=== PATIENT | female | born 1955 | race Caucasian/White ===

== ENCOUNTER 2017-10-12 15:26 | Observation (INO) | payer MEDICARE, MEDICAID ==
[~2017-10-12] VITALS: Ht 157.5 cm; Wt 92.5 kg
--- OUTSIDE RECORDS SUMMARY | 2017-10-12 15:30 | XMS REPORT ---
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
--- OUTSIDE RECORDS SUMMARY | 2017-10-12 15:30 | XMS REPORT ---
Author Author JESSICA LUA [facility] Address [address] [place] [address] Care Team Providers Care Qi Specialist Name Role Phone JESSICA LUA Unavailable PROBLEMS Unknown Problems ALLERGIES Unknown Allergies SOCIAL HISTORY No smoking Hx information available PLAN OF CARE VITAL SIGNS MEDICATIONS Unknown Medications RESULTS No Results PROCEDURES No Known procedures IMMUNIZATIONS No Known Immunizations
--- OUTSIDE RECORDS SUMMARY | 2017-10-12 15:30 | XMS REPORT ---
Author Author TANMAY CADE [facility] Address [address] [place] [address] Care Team Providers Care Reimbursement Representative Name Role Phone TANMAY CADE Unavailable PROBLEMS Unknown Problems ALLERGIES Unknown Allergies SOCIAL HISTORY No smoking Hx information available PLAN OF CARE VITAL SIGNS MEDICATIONS Medication Instructions Dosage Frequency Start Date End Date Duration Status Venlafaxine HCl ER 150 MG Orally Once a day 1 capsule with food 24h Apr 18 days Active RESULTS No Results PROCEDURES No Known procedures IMMUNIZATIONS No Known Immunizations
--- OUTSIDE RECORDS SUMMARY | 2017-10-12 15:31 | XMS REPORT ---
Author Author TANMAY CADE Organization [facility] Address [address] [place] [address] Care Team Providers Care Pigment Making Supervisor Name Role Phone ALYSSIA TANMAY Unavailable PROBLEMS Unknown Problems ALLERGIES Unknown Allergies SOCIAL HISTORY No smoking Hx information available PLAN OF CARE VITAL SIGNS MEDICATIONS Medication Instructions Dosage Frequency Start Date End Date Duration Status Trokendi XR 50 mg Orally Once a day 1 capsule 24h Apr, 30 days Active Montelukast Sodium 10 mg Orally Once a day 1 tablet in the evening 24h Apr, 30 days Active Spironolactone 50 MG Orally Once a day 1 tablet 24h Apr, 30 day (s) Active Lisinopril-Hydrochlorothiazide 20-25 MG Orally Once a day 1 tablet 24h Apr, 21 days Active Venlafaxine HCl ER 150 MG Orally Once a day 1 capsule with food 24h Apr 18 days Active BusPIRone HCl 10 mg Orally Twice a day 1 tablet 12h Apr, 21 days Active Rosuvastatin Calcium 20 mg Orally Once a day 1 tablet 24h Apr, 21 days Active Sulfasalazine 500 MG Orally every 6 hrs 1 tablet 6h Apr, 21 days Active RESULTS No Results PROCEDURES No Known procedures IMMUNIZATIONS No Known Immunizations
[2017-10-12 16:16] LABS: BASOPHILS # (AUTO) 0.1 10^3/uL (0.0-0.1); BASOPHILS % (AUTO) 0 % (0-10); EOSINOPHILS # (AUTO) 0.3 10^3/uL (0.0-0.3); EOSINOPHILS % (AUTO) 1 % (0-10); HEMATOCRIT 31 % (35-52); HEMOGLOBIN 10.2 G/DL (11.5-16.0); LYMPHOCYTES # (AUTO) 2.7 X 10^3 (1.0-4.0); LYMPHOCYTES % (AUTO) 11 % (12-44); MEAN CORPUSCULAR HEMOGLOBIN 30 PG (25-34); MEAN CORPUSCULAR HGB CONC 33 G/DL (32-36); MEAN CORPUSCULAR VOLUME 91 FL (80-99); MEAN PLATELET VOLUME 9.6 FL (7.4-10.4); MONOCYTES # (AUTO) 2.4 X 10^3 (0.0-1.0); MONOCYTES % (AUTO) 9 % (0-12); NEUTROPHILS # (AUTO) 19.9 X 10^3 (1.8-7.8); NEUTROPHILS % (AUTO) 79 % (42-75); PLATELET COUNT 285 10^3/uL (130-400); RED BLOOD COUNT 3.35 10^6/uL (4.35-5.85); RED CELL DISTRIBUTION WIDTH 17.1 % (10.0-14.5); WHITE BLOOD COUNT 25.3 10^3/uL (4.3-11.0)
--- NOTE | 2017-10-12 16:22 | ED General ---
General Chief Complaint: General Problems/Pain Stated Complaint: HAND AND FEET PAIN;DEHYDRATION Nursing Triage Note: PATIENT STATES THAT SHE "JUST HASN'T FELT GOOD." STATES SHE HAS HAD A "BUG" SINCE MAY AND THE VOMITS EVERY TIME SHE COUGHS. SHE SAID SHE IS HERE BECAUSE OF HER NEUROPATHY BUT STATES SHE HAS HAD IT FOR YEARS AND IT IS NOT NECESSARILY WORSE TODAY. SHE ALSO THINKS SHE IS DEHYDRATED AND SHE TWITCHES A LOT. DAUGHTER HAS VIDEO OF A TWITCHING EPISODE ON HER PHONE. Nursing Sepsis Screen: No Definite Risk (ROSA MARIA GENAO STUDENT) History of Present Illness Date Seen by Provider: Oct 12, 2017 Time Seen by Provider: 15:50 Initial Comments This is a 62 y/o female presenting to the ED by private vehicle. Patients chief complaints are light headedness, dizziness, and twitching that started yesterday. Patient is appears to have dystonic movement in the head, neck and shoulders. Patient reports falling today after standing up, denies hitting her head or any other injuries, pain or syncope. Patient also reports a chronic productive cough and nasal congestion that has been present since May. She reports vomiting mucus occasionally with a forceful cough. Patient has a history of neuropathy in her hands and feet, she is not able to feel her feet when standing. The numbness and tingling has not changed in severity recently. Patient was able to stand on her own when asked, she uses a walker at home to ambulate. She reports a history of urinary incontinence, but denies pain or burning on urination. She also states that she has rheumatoid arthritis, she states she was recently taken off Methotrexate on 10/07/17 due to muscle cramping. Patient reports that she quit smoking 5 years ago, and denies recent drug or alcohol use. Currently prescribed Tramadol for pain, she states that she has been prescribed multiple opioids in the past. Patient is currently living in [place], [place] and is here visiting her daughter. (ROSA MARIA GENAO STUDENT) Allergies and Home Medications Allergies Coded Allergies: Penicillins (Verified Allergy, Unknown, 10/12/17) Patient Home Medication List Home Medication List Reviewed: Yes (ROSA MARIA GENAO) Review of Systems Constitutional: No chills, No diaphoresis; dizziness; No fever; other ( lightheaded) EENTM: nose congestion Respiratory: cough (productive), dyspnea on exertion; No short of breath Cardiovascular: No chest pain, No edema, No syncope Gastrointestinal: no symptoms reported; No abdominal pain, No constipation, No diarrhea; vomiting (after coughing ) Genitourinary: No decreased output, No dysuria, No frequency; incontinence Musculoskeletal: back pain (chronic ), muscle cramps, muscle twitching Skin: dryness Psychiatric/Neurological: Depressed, Numbness (feet), Tingling (hands and feet ), Other (twitching ) Hematologic/Lymphatic: No Symptoms Reported Immunological/Allergic: no symptoms reported (ROSA MARIA GENAO [employer] Live STUDENT) Past Edbamcv-Bynpgk-Htctzj Hx Patient Social History Alcohol Use: Denies Use Recreational Drug Use: No Smoking Status: Former Smoker (quit 5 years ago ) Recent Foreign Travel: No Contact w/Someone Who Travel: No Recent Infectious Disease Expo: No Physical Abuse: No Sexual Abuse: No (ROSA MARIA GENAO ABC Live SERA) Past Medical History Respiratory: Yes COPD Neurological: Yes Neuropathy Musculoskeletal: Yes Degenerate Disk Disease Endocrine: Yes (DM) Nursing Suicide Risk Score: 0 (ROSA MARIA GENAO ABC Live SERA) Physical Exam Vital Signs Vital Signs - First Documented 10/12/17 15:30 Temp 98.0 Pulse 96 Resp 22 B/P (MAP) 120/79 (93) Pulse Ox 96 (LULA LENTZ MD) Vital Signs Capillary Refill : Less Than 3 Seconds (ROSA MARIA GENAO [employer] Live STUDENT) General Appearance: No Apparent Distress, Other (dystonic movemtents of the head/neck, shoulders, extremities ) Eyes: Bilateral Eye Normal Inspection, Bilateral Eye EOMI Neck: Full Range of Motion, Normal Inspection, Non Tender, Supple Respiratory: Chest Non Tender, Lungs Clear, Normal Breath Sounds, No Accessory Muscle Use, No Respiratory Distress Cardiovascular: Regular Rate, Rhythm, No Edema, No Gallop, No JVD, No Murmur, Normal Peripheral Pulses Gastrointestinal: Normal Bowel Sounds, No Organomegaly, No Pulsatile Mass, Non Tender, Soft Extremity: Normal Capillary Refill, Normal Inspection, Normal Range of Motion, Non Tender, No Pedal Edema Neurologic/Psychiatric: Alert, Oriented x3, No Motor/Sensory Deficits, roving hauler II- XII Norm as Tested, Other (decreased sensation of Bilateral feet ) Skin: Normal Color, Warm/Dry (ROSA MARIA GENAO ABC Live STUDENT) Progress/Results/Core Measures Suspected Sepsis Recent Fever Within 48 Hours: No Infection Criteria Present: None New/Unexplained Altered Menta: No Sepsis Screen: No Definite Risk SIRS Temperature:98.0 Pulse: 96 Respiratory Rate: 22 Laboratory Tests 10/12/17 15:40: White Blood Count 25.3H Blood Pressure 120 /79 Mean: 93 Laboratory Tests 10/12/17 15:40: Creatinine 1.24, Platelet Count 285, Total Bilirubin 0.4 (ROSA MARIA GENAO ABC Live STUDENT) Results/Orders Lab Results Laboratory Tests Test 10/12/17 15:40 10/12/17 16:20 Range/Units White Blood Count 25.3 H 4.3-11.0 10^3/uL Red Blood Count 3.35 L 4.35-5.85 10^6/uL Hemoglobin 10.2 L 11.5-16.0 G/DL Hematocrit 31 L 35-52 % Mean Corpuscular Volume 91 80-99 FL Mean Corpuscular Hemoglobin 30 25-34 PG Mean Corpuscular Hemoglobin Concent 33 32-36 G/DL Red Cell Distribution Width 17.1 H 10.0-14.5 % Platelet Count 285 130-400 10^3/uL Mean Platelet Volume 9.6 7.4-10.4 FL Neutrophils (%) (Auto) 79 H 42-75 % Lymphocytes (%) (Auto) 11 L 12-44 % Monocytes (%) (Auto) 9 0-12 % Eosinophils (%) (Auto) 1 0-10 % Basophils (%) (Auto) 0 0-10 % Neutrophils # (Auto) 19.9 H 1.8-7.8 X 10^3 Lymphocytes # (Auto) 2.7 1.0-4.0 X 10^3 Monocytes # (Auto) 2.4 H 0.0-1.0 X 10^3 Eosinophils # (Auto) 0.3 0.0-0.3 10^3/uL Basophils # (Auto) 0.1 0.0-0.1 10^3/uL Neutrophils % (Manual) 83 % Lymphocytes % (Manual) 9 % Monocytes % (Manual) 7 % Eosinophils % (Manual) 0 % Basophils % (Manual) 0 % Band Neutrophils 1 % Blood Morphology Comment NORMAL Sodium Level 132 L 135-145 MMOL/L Potassium Level 4.6 3.6-5.0 MMOL/L Chloride Level 101 98-107 MMOL/L Carbon Dioxide Level 23 21-32 MMOL/L Anion Gap 8 5-14 MMOL/L Blood Urea Nitrogen 30 H 7-18 MG/DL Creatinine 1.24 0.60-1.30 MG/DL Estimat Glomerular Filtration Rate 44 BUN/Creatinine Ratio 24 Glucose Level 126 H 70-105 MG/DL Calcium Level 9.7 8.5-10.1 MG/DL Magnesium Level 1.2 L 1.8-2.4 MG/DL Total Bilirubin 0.4 0.1-1.0 MG/DL Aspartate Amino Transf (AST/SGOT) 40 H 5-34 U/L Alanine Aminotransferase (ALT/SGPT) 27 0-55 U/L Alkaline Phosphatase 64 40-136 U/L Troponin I < 0.30 <0.30 NG/ML C-Reactive Protein High Sensitivity 1.57 H 0.00-0.50 MG/DL Total Protein 7.2 6.4-8.2 GM/DL Albumin 3.8 3.2-4.5 GM/DL TSH Loving Testing 1.40 0.35-4.94 UIU/ML Serum Alcohol < 10 <10 MG/DL Urine Color YELLOW Urine Clarity CLEAR Urine pH 6 5-9 Urine Specific [place] 1.020 1.016-1.022 Urine Protein 1+ H NEGATIVE Urine Glucose (UA) NEGATIVE NEGATIVE Urine Ketones NEGATIVE NEGATIVE Urine Nitrite NEGATIVE NEGATIVE Urine Bilirubin NEGATIVE NEGATIVE Urine Urobilinogen NORMAL NORMAL MG/DL Urine Leukocyte Esterase 1+ H NEGATIVE Urine RBC (Auto) 2+ H NEGATIVE Urine RBC 2-5 H /HPF Urine WBC 2-5 /HPF Urine Squamous Epithelial Cells 0-2 /HPF Urine Crystals NONE /LPF Urine Bacteria NONE /HPF Urine Casts NONE /LPF Urine Mucus TRACE /LPF Urine Culture Indicated NO Urine Opiates Screen NEGATIVE NEGATIVE Urine Oxycodone Screen NEGATIVE NEGATIVE Urine Methadone Screen NEGATIVE NEGATIVE Urine Propoxyphene Screen NEGATIVE NEGATIVE Urine Barbiturates Screen NEGATIVE NEGATIVE Ur Tricyclic Antidepressants Screen NEGATIVE NEGATIVE Urine Phencyclidine Screen NEGATIVE NEGATIVE Urine Amphetamines Screen NEGATIVE NEGATIVE Urine Methamphetamines Screen NEGATIVE NEGATIVE Urine Benzodiazepines Screen NEGATIVE NEGATIVE Urine Cocaine Screen NEGATIVE NEGATIVE Urine Cannabinoids Screen NEGATIVE NEGATIVE (LULA LENTZ MD) My Orders Orders - LULA LENTZ MD Alcohol (10/12/17 16:07) Cbc With Automated Diff (10/12/17 16:07) Comprehensive Metabolic Panel (10/12/17 16:07) Drug Screen Stat (Urine) (10/12/17 16:07) Magnesium (10/12/17 16:07) Thyroid Analyzer (10/12/17 16:07) Troponin I (10/12/17 16:07) Ua Culture If Indicated (10/12/17 16:07) Chest 1 View, Ap/Pa Only (10/12/17 16:07) Saline Lock/Iv-Start (10/12/17 16:07) Ekg Tracing (10/12/17 16:07) Monitor-Rhythm Ecg Trace Only (10/12/17 16:07) Orthostatic Vital Signs (Adult (10/12/17 16:07) Us Carotid Don Complete [id number] (10/12/17 16:12) Manual Differential (10/12/17 15:40) Saline Lock/Iv-Start (10/12/17 16:46) Ns Iv 1000 Ml (Sodium Chloride 0.9%) (10/12/17 16:46) Hs C Reactive Protein (10/12/17 16:46) Magnesium 1 Gm/100 Ml Ivpb (Magnesium Rodriguez (10/12/17 17:00) Ct Head Wo (10/12/17 17:09) General/Regular (10/13/17 Breakfast) Ketorolac Injection (Toradol Injection) (10/12/17 18:15) (LULA LENTZ MD) Medications Given in ED Current Medications Medications Dose Ordered Sig/Neto Route Start Time Stop Time Status Last Admin Dose Admin Magnesium Sulfate/ Dextrose 100 ml @ 100 mls/hr ONCE ONCE IV 10/12/17 17:00 10/12/17 17:59 DC 10/12/17 17:06 100 MLS/HR Sodium Chloride 1,000 ml @ 0 mls/hr Q0M ONCE IV 10/12/17 16:46 10/12/17 16:47 DC 10/12/17 17:00 0 MLS/HR (LULA LENTZ MD) Vital Signs/I&O 10/12/17 10/12/17 15:30 16:23 Temp 98.0 Pulse 96 93 101 99 Resp 22 B/P (MAP) 120/79 (93) 113/53 (73) 109/67 (81) 94/38 (56) Pulse Ox 96 (LULA LENTZ MD) Vital Signs/I&O Capillary Refill : Less Than 3 Seconds (ROSA MARIA GENAO MED STUDENT) Blood Pressure Mean: 93 Progress Note #1: Time: 16:07 Progress Note Chest X ray was reviewed and read by me, see report below: NAME: KRISTYN ROSS [facility] REC#: [id number] PT STATUS: REG ER : 1955 PHYSICIAN: LULA LENTZ MD ADMIT DATE: 10/12/17/ER Draft Date of Exam:10/12/17 CHEST 1 VIEW, AP/PA ONLY INDICATION: Cough. COMPARISON: None. FINDINGS: Single view of the chest demonstrates clear lungs bilaterally. The heart is normal. There is no pneumothorax. Osseous structures are normal. IMPRESSION: Negative chest. Dictated on workstation # [id number] Dict: 10/12/17 1718 Trans: 10/12/17 1720 [id number] Interpreted by: KEIRA ACEVES Electronically signed by: Progress Note #2: Time: 16:40 Progress Note Carotid US was reviewed and read by me, see report below: NAME: KRISTYN ROSS [facility] REC#: [id number] PT STATUS: REG ER : 1955 PHYSICIAN: LULA LENTZ MD ADMIT DATE: 10/12/17/ER Draft Date of Exam:10/12/17 US CAROTID DON COMPLETE [id number] PROCEDURE: US carotid duplex, bilateral. TECHNIQUE: Multiple real-time grayscale images were obtained over the carotid arteries in various projections, bilaterally. Additional duplex Doppler and color Doppler images were also obtained. INDICATION: Atherosclerotic disease. Altered mental status. FINDINGS: Real-time imaging shows mild calcified plaquing in the carotid bulbs and internal carotid arteries bilaterally. Color Doppler imaging shows normal antegrade flow throughout both carotid and vertebral arteries. Doppler sampling shows normal waveforms throughout with no hemodynamic change. IMPRESSION: Mild atherosclerotic changes within the internal carotid arteries bilaterally estimated less than 30%. There are no hemodynamic changes present. Parameters based on the consensus panel [place]-Scale and Doppler ultrasound criteria published March 2003, Radiology, Volume 229. DOPPLER (peak systolic velocity M/S Right Left CCA 1.1 1.0 ICA Proximal .90 .80 ICA Mid .91 .80 ICA Distal 1.1 1.0 RATIO .80 .75 ECA 1.2 1.0 VERT .62 .50 Dictated on workstation # [id number] Dict: 10/12/174 Trans: 10/12/17 1718 [id number] Interpreted by: MYRON CROSS MD Electronically signed by: Progress Note #3: Time: 16:45 Progress Note Patient is complaining of muscle cramps and pain, this could be due to a low Magnesium level. Patient reports she has had low magnesium in the past, will begin IV Mg replacement and monitor for improvement. Patient was slightly orthostatic with blood pressures were: 113/53 lying, 109/67 sitting, 94/38 standing, continue IV fluids. Work up revealing leukocytosis without an obvious sign of infection, CXR, carotid US and urinalysis were unremarkable. Due to the patient's new onset of dystonic movements, leukocytosis, and recent use of Methotrexate I believe it is necessary to perform a head CT. The risks and benefits of a CT scan were discussed with the patient. Progress Note #4: Time: 17:[address] was read and reviewed by me, see report below NAME: KRISTYN ROSS [facility] REC#: [id number] PT STATUS: REG ER : 1955 PHYSICIAN: LULA LENTZ MD ADMIT DATE: 10/12/17/ER Draft Date of Exam:10/12/17 CT HEAD WO PROCEDURE: CT head without contrast. TECHNIQUE: Multiple contiguous axial images were obtained through the brain without the use of intravenous contrast. INDICATION: Headache, dehydration, twitching sensation. FINDINGS: The ventricles are normal in size, shape and position. There is no midline shift or mass effect. There is no hemorrhage or evidence of acute ischemia. There is no cerebral edema. No extra-axial fluid collection is seen. The bony calvarium and visualized paranasal sinuses and mastoids are clear. IMPRESSION: Negative CT head. Dictated on workstation # [id number] Dict: 10/12/17 1739 Trans: 10/12/17 1745 [facility] [id number] Interpreted by: KEIRA ACEVES Electronically signed by: Progress Note #5: Time: 17:59 Progress Note Plan to admit patient for observation, due to unexplained dystonic movements, IV fluid replacement,severe muscle cramping and magnesium replacement. (ROSA MARIA GENAO MED STUDENT) Progress Note : Time: 18:34 Progress Note Patient was seen, interviewed, and examined along with Rosa Maria's MARY BETH Gen[employer] student. I agree with her history, exam, and assessments with the following additions. Patient is accompanied by her daughter who reports her dystonic movements are not baseline. She presents a video on her phone of patient having more marketed dystonic movements at the house. Patient complains primarily of a near syncopal episode with lightheadedness today as well as some intense cramping. The cramping had already started last Tuesday when she saw her doctor. He asked her to discontinue methotrexate at that time. Patient's exam was relatively unremarkable with the exception of instability with gait, generalized weakness, and dystonic movements. A thorough workup was performed. Imaging that included chest x-ray, carotid ultrasound, and CT of the head was all negative. Labs revealed leukocytosis of unexplained etiology. Patient denies any known areas of infection. Patient has not been on any steroids in the recent past. Patient also had a notably low magnesium. She was found to be mildly orthostatic. A liter of IV normal saline was administered. 1 g of magnesium was also administered in the ER. Patient noted improvement even before the full liter of normal saline was completed. Patient sees a physician in [facility] but is at our facility because she is here with her daughter. Exam: Gen.: Alert, oriented, generally weak HEENT: normocephalic and atraumatic, oropharynx somewhat dry Neck: Normal to inspection Heart: Regular rate and rhythm without murmur, no significant edema Lungs: Clear to auscultation bilaterally Abdomen: Soft, nontender, normal bowel sounds Neuro/psych: Alert and oriented, generalized weakness with no focal deficits, generalized dystonic movements primarily affecting the torso and upper extremities Skin: Warm, dry, no rashes Case was reviewed with Dr. Mehta who agrees with admission. We will hold her home medications at this time as medication effect may be part of her symptoms especially in the context of hypovolemia. We will continue to hydrate with normal saline overnight. Dr. Syed request a consultation with Dr. Smith who agrees to see the patient. Labs will be repeated in the morning. (LULA LENTZ MD) Departure Communication (Admissions) Time/Spoke to Admitting Phy: 18:[address] Syed. Time/Spoke to Consulting Phy: 18:[address] Smith. (ROSA MARIA EGNAO MED STUDENT) Impression Primary Impression: Hypomagnesemia Additional Impressions: Dystonic movements Muscle cramping Leukocytosis, unspecified Hypovolemia Generalized weakness Disposition: ADMITTED INPATIENT Condition: Stable Admissions Decision to Admit Reason: Admit from ER (General) Decision to Admit/Date: Oct 12, 2017 Time/Decision to Admit Time: 17:50 (ROSA MARIA GENAO STUDENT) Decision to Admit Reason: Admit from ER (General) (LULA LENTZ MD) Departure-Patient Inst. Referrals: NISREEN LOU MD (PCP/Family) Primary Care Physician ROSA MARIA GENAO STUDENT Oct 12, 2017 16:22 LULA LENTZ MD Oct 12, 2017 18:40
[2017-10-12 16:23] VITALS: BP_SYST 109; BP_SYST 113; BP_SYST 94; BP_DIAS 38; BP_DIAS 53; BP_DIAS 67
[2017-10-12 16:27] LABS: BAND NEUTROPHILS 1 %; BASOPHILS % (MANUAL) 0 %; EOSINOPHILS % (MANUAL) 0 %; LYMPHOCYTES % (MANUAL) 9 %; MONOCYTES % (MANUAL) 7 %; NEUTROPHILS % (MANUAL) 83 %; RBC MORPH NORMAL
[2017-10-12 16:29] LABS: ALANINE AMINOTRANSFERASE 27 U/L (0-55); ALBUMIN 3.8 GM/DL (3.2-4.5); ALKALINE PHOSPHATASE 64 U/L (40-136); BILIRUBIN,TOTAL 0.4 MG/DL (0.1-1.0); BUN/CREATININE RATIO 24; CALCIUM 9.7 MG/DL (8.5-10.1); CARBON DIOXIDE 23 MMOL/L (21-32); CHLORIDE 101 MMOL/L (98-107); CREATININE SERUM 1.24 MG/DL (0.60-1.30); GFR ESTIMATED 44; GLUCOSE 126 MG/DL (70-105); MAGNESIUM 1.2 MG/DL (1.8-2.4); POTASSIUM 4.6 MMOL/L (3.6-5.0); SODIUM 132 MMOL/L (135-145); TOTAL PROTEIN 7.2 GM/DL (6.4-8.2)
[2017-10-12 16:32] LABS: BILIRUBIN,URINE NEGATIVE (NEGATIVE); CLARITY,URINE CLEAR; COLOR,URINE YELLOW; GLUCOSE, URINE (UA) NEGATIVE (NEGATIVE); KETONES,URINE NEGATIVE (NEGATIVE); LEUKOCYTE ESTERASE ,URINE 1+ (NEGATIVE); NITRITE,URINE NEGATIVE (NEGATIVE); PH,URINE 6 (5-9); PROTEIN,URINE 1+ (NEGATIVE); UROBILINOGEN,URINE NORMAL (NORMAL)
[2017-10-12 16:39] LABS: SQUAMOUS EPITHELIAL CELL,UR 0-2 /HPF
[2017-10-12 16:41] LABS: AMPHETAMINE SCREEN, URINE NEGATIVE (NEGATIVE); BARBITURATE SCREEN URINE NEGATIVE (NEGATIVE); BENZODIAZEPINES SCREEN URINE NEGATIVE (NEGATIVE); CANNABINOID SCREEN, URINE NEGATIVE (NEGATIVE); COCAINE SCREEN URINE NEGATIVE (NEGATIVE); METHAMPHETAMINE SCREEN URINE S NEGATIVE (NEGATIVE); OPIATE SCREEN URINE NEGATIVE (NEGATIVE)
[2017-10-12 16:42] LABS: METHADONE STAT NEGATIVE (NEGATIVE); OXYCODONE STAT NEGATIVE (NEGATIVE); PROPOXYPHENE STAT NEGATIVE (NEGATIVE); TRICYCLIC ANTIDEPRESSANTS SCRE NEGATIVE (NEGATIVE)
[2017-10-12] MEDS ORDERED: NS IV 1000 ML 1,000 ML IV ONE (16:46)
[2017-10-12] MEDS ORDERED: MAGNESIUM 1 GM/100 ML IVPB 100 ML IV ONE (17:00)
--- NOTE | 2017-10-12 17:18 | Diagnostic Imaging Report ---
PROCEDURE: US carotid duplex, bilateral. TECHNIQUE: Multiple real-time grayscale images were obtained over the carotid arteries in various projections, bilaterally. Additional duplex Doppler and color Doppler images were also obtained. INDICATION: Atherosclerotic disease. Altered mental status. FINDINGS: Real-time imaging shows mild calcified plaquing in the carotid bulbs and internal carotid arteries bilaterally. Color Doppler imaging shows normal antegrade flow throughout both carotid and vertebral arteries. Doppler sampling shows normal waveforms throughout with no hemodynamic change. IMPRESSION: Mild atherosclerotic changes within the internal carotid arteries bilaterally estimated less than 30%. There are no hemodynamic changes present. Parameters based on the consensus panel [place]-Scale and Doppler ultrasound criteria published March 2003, Radiology, Volume 229. DOPPLER (peak systolic velocity M/S Right Left CCA 1.1 1.0 ICA Proximal .90 .80 ICA Mid .91 .80 ICA Distal 1.1 1.0 RATIO .80 .75 ECA 1.2 1.0 VERT .62 .50 Dictated by: Dictated on workstation # [id number]
--- NOTE | 2017-10-12 17:20 | Diagnostic Imaging Report ---
INDICATION: Cough. COMPARISON: None. FINDINGS: Single view of the chest demonstrates clear lungs bilaterally. The heart is normal. There is no pneumothorax. Osseous structures are normal. IMPRESSION: Negative chest. Dictated by: Dictated on workstation # [id number]
--- NOTE | 2017-10-12 17:45 | Diagnostic Imaging Report ---
PROCEDURE: CT head without contrast. TECHNIQUE: Multiple contiguous axial images were obtained through the brain without the use of intravenous contrast. INDICATION: Headache, dehydration, twitching sensation. FINDINGS: The ventricles are normal in size, shape and position. There is no midline shift or mass effect. There is no hemorrhage or evidence of acute ischemia. There is no cerebral edema. No extra-axial fluid collection is seen. The bony calvarium and visualized paranasal sinuses and mastoids are clear. IMPRESSION: Negative CT head. Dictated by: Dictated on workstation # [id number]
[2017-10-12] MEDS ORDERED: KETOROLAC 30 MG/ML VIAL IVP ONE (18:15)
[2017-10-12 18:55] VITALS: BP 135/66
[2017-10-12] MEDS ORDERED: IBUPROFEN TABLET 200 MG TAB PO PRN (19:15)
[2017-10-12] MEDS ORDERED: CATHETER FLUSH 10 ML SYR IV PRN (19:15)
[2017-10-12] MEDS ORDERED: ACETAMINOPHEN 500 MG TAB (TYLENOL) PO PRN (19:15)
[2017-10-12 19:55] VITALS: BP 132/60
[2017-10-12] MEDS ORDERED: ONDANSETRON 4 MG/2 ML (SDV) Z0FRAN IVP PRN (20:30)
[2017-10-12] MEDS ORDERED: ALPRAZolam 0.25 MG (XANAX) TAB PO PRN (20:30)
[2017-10-12] MEDS: NS IV 1000 ML 1,000 ML IV SCH (20:30)
[2017-10-12] MEDS ORDERED: fentaNYL INJECTION 100 MCG/2 ML AMP IVP PRN (20:30)
[2017-10-12] MEDS: MAGNESIUM 1 GM/D5W 100 ML IVPB IV SCH ×2 (20:31→21:53)
[2017-10-12 20:55] VITALS: BP 112/52
[2017-10-12 21:55] VITALS: BP 132/59
[2017-10-13] VITALS: BP 118/63
[2017-10-13 04:00] VITALS: BP 116/73
[2017-10-13 05:57] LABS: BASOPHILS # (AUTO) 0.1 10^3/uL (0.0-0.1); BASOPHILS % (AUTO) 0 % (0-10); EOSINOPHILS # (AUTO) 0.5 10^3/uL (0.0-0.3); EOSINOPHILS % (AUTO) 4 % (0-10); HEMATOCRIT 29 % (35-52); HEMOGLOBIN 9.5 G/DL (11.5-16.0); LYMPHOCYTES # (AUTO) 2.6 X 10^3 (1.0-4.0); LYMPHOCYTES % (AUTO) 22 % (12-44); MEAN CORPUSCULAR HEMOGLOBIN 31 PG (25-34); MEAN CORPUSCULAR HGB CONC 33 G/DL (32-36); MEAN CORPUSCULAR VOLUME 93 FL (80-99); MEAN PLATELET VOLUME 9.3 FL (7.4-10.4); MONOCYTES # (AUTO) 1.5 X 10^3 (0.0-1.0); MONOCYTES % (AUTO) 13 % (0-12); NEUTROPHILS # (AUTO) 7.4 X 10^3 (1.8-7.8); NEUTROPHILS % (AUTO) 61 % (42-75); PLATELET COUNT 259 10^3/uL (130-400); RED BLOOD COUNT 3.11 10^6/uL (4.35-5.85); RED CELL DISTRIBUTION WIDTH 17.5 % (10.0-14.5); WHITE BLOOD COUNT 12.2 10^3/uL (4.3-11.0)
[2017-10-13] MEDS: NS IV 1000 ML 1,000 ML IV SCH (06:40)
[2017-10-13 08:00] VITALS: BP 145/66
[2017-10-13] MEDS ORDERED: TRAZ150T72 PO (08:11)
[2017-10-13] MEDS ORDERED: SULF500T7 PO (08:11)
[2017-10-13] MEDS ORDERED: BACL10TA PO (08:11)
[2017-10-13] MEDS ORDERED: NYST60PO TOP (08:11)
[2017-10-13] MEDS ORDERED: TRAM50TA2 PO (08:11)
[2017-10-13] MEDS ORDERED: METH2.5T PO (08:11)
[2017-10-13] MEDS ORDERED: LEVO5TAB12 PO (08:11)
[2017-10-13] MEDS ORDERED: LISI1TAB10 PO (08:11)
[2017-10-13] MEDS ORDERED: VENL150C98 PO (08:11)
[2017-10-13] MEDS ORDERED: METF850T2 PO (08:11)
[2017-10-13] MEDS ORDERED: MONT10TA24 PO (08:11)
[2017-10-13] MEDS ORDERED: SPIR50TA2 PO (08:11)
[2017-10-13] MEDS ORDERED: BUSP10TA95 PO ×2 (08:11→08:32)
[2017-10-13] MEDS ORDERED: OMEP20CA12 PO (08:11)
[2017-10-13] MEDS ORDERED: ROSU20TA30 PO (08:11)
[2017-10-13] MEDS ORDERED: NF-MAG64T PO (08:32)
[2017-10-13] MEDS ORDERED: CHOL5000 PO (08:34)
--- NOTE | 2017-10-13 09:23 | Consultation-Cardiology ---
HPI-Cardiology Cardiology Consultation: Date of Consultation 10/13/17 Time Seen by Provider: 08:45 Date of Admission Attending Physician Stefani Syed DO Admitting Physician German Longoria MD Consulting Physician Shelley Smith MD HPI: Chief Complaint: Near syncope Ms. Medrano is a 62 year old female admitted to 410 from the ED with near syncope and AMS. She reports she was visiting her daughter yesterday when she started to have hallucinations and "was talking to people that weren't there". She reports dizziness and lightheadedness. She states she fell once d/t losing her balance. She does not report any syncope or near syncope. She states she has been having frequent nausea and vomiting since having the flu in May of this year. She reports she has been following with her PCP regarding this. She reports chronic mild to mod exertional dyspnea which is unchanged. She denies any CP or palpitations. She denies any LE edema. She reports she is currently feeling better. She has been up to BR without and difficulty. Review of Systems-Cardiology Review of Systems Constitutional: malaise Eyes: No vision change Ears/Nose/Throat: No epistaxis, No recent hearing loss Respiratory: As described under HPI Cardiovascular: As described under HPI Gastrointestinal: nausea, vomiting Skin: No rash, No ulcerations Psychiatric/Neurological: As described under HPI, depression Hematologic: No bleeding abnormalities LRT-Ijakty-Vmpqgr Hx Patient Social History Alcohol Use: Denies Use Recreational Drug Use: No Smoking Status: Former Smoker Recent Foreign Travel: No Recent Infectious Disease Expo: No Hospitalization with Isolation: Denies Physical Abuse Screen: No Sexual Abuse: No Past Medical History PMH As described under Assessment. Family Medical History Family Medical History: Father - CAD, CABG, carotid disease and AAA (first diagnosed in his 60's) Brother - CAD, CABG (late 60's) Mother - CAD Allergies and Home Medications Allergies Coded Allergies: Penicillins (Verified Allergy, Unknown, 10/12/17) Home Medications Baclofen 10 Mg Tablet, 10 MG PO TID PRN for MUSCLE SPASMS, (Reported) Buspirone HCl 10 Mg Tablet, 10 MG PO BID, (Reported) Buspirone HCl 10 Mg Tablet, 10 MG PO 1200 PRN for ANXIETY, (Reported) Cholecalciferol (Vitamin D3) 5,000 Unit Capsule, 5,000 UNIT PO DAILY, (Reported) Levocetirizine Dihydrochloride 5 Mg Tablet, 5 MG PO HS, (Reported) Magnesium Chloride 64 Mg Tab, 64 MG PO BID, (Reported) Metformin HCl 850 Mg Tablet, 850 MG PO BID, (Reported) Montelukast Sodium 10 Mg Tablet, 10 MG PO HS, (Reported) Nystatin 60 Gm Powder, TOP BID PRN for RASH, (Reported) Omeprazole 20 Mg Capsule.dr, 20 MG PO DAILY, (Reported) Rosuvastatin Calcium 20 Mg Tablet, 20 MG PO HS, (Reported) Sulfasalazine 500 Mg Tablet, 1,000 MG PO BID, (Reported) TAKES 2 (500MG) TABLETS Tramadol HCl 50 Mg Tablet, 50 MG PO Q6H PRN for PAIN-MODERATE, (Reported) Trazodone HCl 150 Mg Tablet, 150 MG PO HS, (Reported) Venlafaxine HCl 150 Mg Cap.er.24h, 150 MG PO DAILY, (Reported) Physical Exam-Cardiology Physical Exam Vital Signs/I&O Capillary Refill : Less Than 3 Seconds Constitutional: AAO x 3, well-developed, well-nourished HEENT: PERRL, hearing is well preserved, oral hygience is good; No xanthelasmas are seen Neck: No carotid bruit Respiratory: No accessory muscle use, No respiratory distress; lungs clear to auscultation, other (prolonged expiratory phase) Cardiovascular: regular rate-rhythm; No JVD; S1 and S2 Gastrointestinal: No tender; soft, round, audible bowel sounds Rectal: deferred Extremities: no lower extremity edema bilateral Neurologic/Psychiatric: grossly intact Skin: No rash, No ulcerations Data Review Labs Radiology NAME: KRISTYN MEDRANO [facility] REC#: [id number] PT STATUS: ADM Mohit : 1955 PHYSICIAN: LULA LENTZ MD ADMIT DATE: 10/12/17 Signed Date of Exam: 10/12/17 CHEST 1 VIEW, AP/PA ONLY INDICATION: Cough. COMPARISON: None. FINDINGS: Single view of the chest demonstrates clear lungs bilaterally. The heart is normal. There is no pneumothorax. Osseous structures are normal. IMPRESSION: Negative chest. Dictated by: Dictated on workstation # [id number] Dict: [id number] Trans: 10/12/171934 Interpreted by: KEIRA ACEVES Electronically signed by: KEIRA ACEVES 10/12/171934 NAME: KRISTYN MEDRANO [facility] REC#: [id number] PT STATUS: ADM Mohit : 1955 PHYSICIAN: LULA LENTZ MD ADMIT DATE: 10/12/17 Signed Date of Exam: 10/12/17 US CAROTID DON COMPLETE [id number] PROCEDURE: US carotid duplex, bilateral. TECHNIQUE: Multiple real-time grayscale images were obtained over the carotid arteries in various projections, bilaterally. Additional duplex Doppler and color Doppler images were also obtained. INDICATION: Atherosclerotic disease. Altered mental status. FINDINGS: Real-time imaging shows mild calcified plaquing in the carotid bulbs and internal carotid arteries bilaterally. Color Doppler imaging shows normal antegrade flow throughout both carotid and vertebral arteries. Doppler sampling shows normal waveforms throughout with no hemodynamic change. IMPRESSION: Mild atherosclerotic changes within the internal carotid arteries bilaterally estimated less than 30%. There are no hemodynamic changes present. Parameters based on the consensus panel [place]-[employer] and Doppler ultrasound criteria published March 2003, Radiology, Volume 229. DOPPLER (peak systolic velocity M/S Right Left CCA 1.1 1.0 ICA Proximal .90 .80 ICA Mid .91 .80 ICA Distal 1.1 1.0 RATIO .80 .75 ECA 1.2 1.0 VERT .62 .50 Dictated by: Dictated on workstation # [id number] Dict: 10/12/171713 Trans: 10/12/171928 Interpreted by: MYRON CROSS MD Electronically signed by: MYRON CROSS MD 10/12/171928 NAME: KRISTYN MEDRANO [facility] REC#: [id number] PT STATUS: ADM Mohit : 1955 PHYSICIAN: LULA LENTZ MD ADMIT DATE: 10/12/17 Signed Date of Exam: 10/12/17 CT HEAD WO PROCEDURE: CT head without contrast. TECHNIQUE: Multiple contiguous axial images were obtained through the brain without the use of intravenous contrast. INDICATION: Headache, dehydration, twitching sensation. FINDINGS: The ventricles are normal in size, shape and position. There is no midline shift or mass effect. There is no hemorrhage or evidence of acute ischemia. There is no cerebral edema. No extra-axial fluid collection is seen. The bony calvarium and visualized paranasal sinuses and mastoids are clear. IMPRESSION: Negative CT head. Dictated by: Dictated on workstation # [id number] Dict: 10/12/17 1739 Trans: 10/12/171934 Interpreted by: KEIRA ACEVES Electronically signed by: KEIRA ACEVES 10/12/171934 A/P-Cardiology Assessment/Admission Diagnosis AMS Dizziness likely d/t dehydration Electrolyte abnormalities d/t chronic n/v and diuretic tx Chronic n/v of undetermined etiology (present for greater than 6 months) Leukocytosis of undetermined etiology - medical services managing COPD HTN HLP - statin tx H/O rheumatic fever as a child Chronic joint pain RA Diabetic neuropathy DM II GERD H/O tobaccoism - quit 5 years ago Family h/o CAD - Father - CAD, CABG, carotid disease and AAA (first diagnosed in his 60's) Brother - CAD, CABG (late 60's) Mother - CAD Mild anemia of undetermined etiology - medical services Mild bilat carotid dz per u/s of 10-12-17 Discussion and Recomendations Replace electrolytes Echocardiogram to eval structure Stop diuretics Clinical Quality Measures DVT/VTE Risk/Contraindication: Risk Factor Score Per Nursin RFS Level Per Nursing on Admit: 4+=Very High CHIARA TERRELL Oct 13, 2017 09:23
--- NOTE | 2017-10-13 10:53 | Short Stay Summary-Hospitalist ---
History of Present Illness HPI/Chief Complaint CC: Dizziness HPI: This is a 62-year-old white female clinic patient of Dr. Longoria and rheumatology Dr. Razo who presents to the ER when she was visiting her daughter with strange and vague symptoms that included dizziness, weakness and involuntary jerking movements. She is maintained on agreed deal of medication that includes Effexor, baclofen, and other pain medication and she was taking her medications as prescribed but began having these symptoms and presented to the ER. She was found to have a white count of 25,000 without source with normal CT head chest x-ray UA and other labs. She was placed in observation status cardiology was consulted who ordered echocardiogram and workup but it appears that this was noncardiac related likely due to dehydration and possible mild heat exposure along with possible polypharmacy medication factor. At this current time she is eating breakfast without difficulty I did order physical therapy who will provide her with a walker since she has one at home and will evaluate her ability to ambulate and then we'll discharge home. Her white count corrected from 25,000-12,000. I will send my records to Dr. Longoria. Source: patient, RN/MD Exam Limitations: no limitations Date Seen 10/13/17 Time Seen by Provider: 10:15 Attending Physician Stefani Mejias Roger A MD Referring Physician Date of Admission Oct 12, 2017 at 18:30 Home Medications & Allergies Home Medications Reviewed patient Home Medication Reconciliation performed by pharmacy medication reconciliations wellfield technician and/or nursing. Patients Allergies have been reviewed. Allergies Allergies Coded Allergies Penicillins (Verified Allergy, Unknown, 10/12/17) Past Srirveg-Matyad-Egcrdb Hx Past Med/Social Hx: Reviewed Nursing Past Med/Soc Hx, Reviewed and Corrections made Patient Social History Employed/Student: retired Alcohol Use: Denies Use Recreational Drug Use: No Smoking Status: Former Smoker Physical Abuse Screen: No Sexual Abuse: No Recent Foreign Travel: No Contact w/other who traveled: No Recent Infectious Disease Expo: No Seasonal Allergies Seasonal Allergies: No Past Medical History Neurological: Neuropathy Genitourinary: UTI-Chronic Musculoskeletal: Degenerate Disk Disease, Rheumatoid Arthritis Psychosocial: Anxiety, Depression History of Blood Disorders: No Adverse Reaction to Blood Archibald: No Family History Hypertension Review of Systems Constitutional: see HPI, dizziness, malaise, weakness EENTM: no symptoms reported Respiratory: no symptoms reported Cardiovascular: no symptoms reported Gastrointestinal: no symptoms reported Genitourinary: no symptoms reported Musculoskeletal: joint pain Skin: no symptoms reported Psychiatric/Neurological: Depressed All Other Systems Reviewed Negative Unless Noted: Yes Physical Exam Physical Exam Vital Signs Vital Signs - First Documented 10/12/17 10/12/17 15:30 18:55 Temp 98.0 Pulse 96 Resp 22 B/P (MAP) 120/79 (93) Pulse Ox 96 O2 Delivery Room Air Capillary Refill : Less Than 3 Seconds General Appearance: No Apparent Distress, WD/WN, Chronically ill Eyes: Bilateral Eye Normal Inspection, Bilateral Eye PERRL HEENT: PERRL/EOMI, Normal ENT Inspection, Pharynx Normal Neck: Full Range of Motion, Normal Inspection, Non Tender, Supple, Carotid Bruit Respiratory: Chest Non Tender, Lungs Clear, Normal Breath Sounds, No Accessory Muscle Use, No Respiratory Distress Cardiovascular: Regular Rate, Rhythm, No Edema, No Gallop, No JVD, No Murmur, Normal Peripheral Pulses Gastrointestinal: Normal Bowel Sounds, No Organomegaly, No Pulsatile Mass, Non Tender, Soft Back: Normal Inspection, No CVA Tenderness, No Vertebral Tenderness Extremity: Normal Capillary Refill, Normal Inspection, Normal Range of Motion, Non Tender, No Calf Tenderness, No Pedal Edema Neurologic/Psychiatric: Alert, Oriented x3, No Motor/Sensory Deficits, Normal Mood/Affect Skin: Normal Color, Warm/Dry Lymphatic: No Adenopathy Results Results/Procedures Labs Laboratory Tests 10/12/17 15:40 10/13/17 05:20 Patient resulted labs reviewed. Short Stay Diagnosis Discharge Diagnosis-Short Stay Admission Diagnosis Assessment: Dizziness Leukocytosis without source Involuntary movements Muscle cramps Hypomagnesemia Chronic rheumatoid arthritis Immunocompromise status holding methotrexate for one week Final Discharge Diagnosis Assessment: Dizziness Leukocytosis without source Involuntary movements Muscle cramps Hypomagnesemia Chronic rheumatoid arthritis Immunocompromise status holding methotrexate for one week Conclusion Plan Plan: Discharge home Follow up with Dr. Longoria to evaluate medication Drink plenty of fluids Diagnosis/Problems Diagnosis/Problems (1) Dystonic movements Status: Resolved Assessment & Plan: Likely medication related and hypovolemic factor (2) Rheumatoid arthritis Status: Chronic Qualifiers: Qualified Codes: M06.9 - Rheumatoid arthritis, unspecified (3) Immunosuppression Status: Chronic Assessment & Plan: Holding methotrexate for past one week (4) Debility Status: Chronic (5) Uses walker Status: Chronic (6) Hypovolemia Status: Resolved (7) Hypomagnesemia Status: Resolved (8) Leukocytosis, unspecified Status: Acute Assessment & Plan: Uncertain etiology no infectious source noted in near normal today (9) Generalized weakness Status: Resolved (10) Hyponatremia Status: Acute (11) Muscle cramping Status: Acute Clinical Quality Measures DVT/VTE Risk/Contraindication: Risk Factor Score Per Nursin RFS Level Per Nursing on Admit: 4+=Very High STEFANI MEJIAS DO Oct 13, 2017 10:53
[2017-10-13] MEDS ORDERED: BACLOFEN 10 MG (LIORESAL) TAB PO PRN (11:00)
[2017-10-13] MEDS ORDERED: NON-FORMULARY MEDICATION 1 EA EA (Buspirone HCl 10 MG) PO PRN (11:00)
[2017-10-13] MEDS ORDERED: MAGNESIUM OXIDE (MAG-OX)400 MG TAB PO SCH (11:06)
[2017-10-13] MEDS ORDERED: busPIRone 10 MG (BUSPAR) TAB PO SCH (11:15)
--- NOTE | 2017-10-13 11:30 | Physical Therapy Evaluation ---
PT Evaluation-General Medical Diagnosis Admission Date Oct 12, 2017 at 18:30 Medical Diagnosis: hypomagnesia Onset Date: Oct 12, 2017 Therapy Diagnosis Therapy Diagnosis: debility Height/Weight Height (Feet): 5 Height (Inches): 2.00 Weight (Pounds): 204 Weight (Ounces): 0.0 Precautions Precautions/Isolations: Fall Prevention, Standard Precautions Weight Bear Status Right Lower Extremity: Right Full Weight Bearing Left Lower Extremity: Left Full Weight Bearing Referral Physician: Kunal Reason for Referral: Evaluation/Treatment Medical History Pertinent Medical History: COPD, DM, HTN, Neuropathy Current History EMS secondary to dehydration/hand and foot pain/ AMS Reviewed History: Yes Social History Home: Single Level Current Living Status: Alone Entry Into Home: Stairs With Railing PT Steps Into Home: 5 (platform steps) Prior/Core FIM Prior Level of Function Functional [place] Measure 0=Not Assessed/NA 4=Minimal Assistance 1=Total Assistance 5=Supervision or Setup 2=Maximal Assistance 6=Modified [place] 3=Moderate Assistance 7=Complete [place] Bed Mobility: 6 Transfers (B,C,W/C) (FIM): 6 Gait: 6 uses 4WW PT Evaluation-Current Subjective Patient reports she is feeling better, just tired. Pain Numeric Pain Scale: 0-No Pain Location: No Pain Reported Objective Patient Orientation: Normal For Age Problem Solving: Fair Attachments: IV ROM/Strength ROM Lower Extremities bilateral LE WFL Strength Lower Extremities 4/5 grossly bilaterally Integumentary/Posture Integumentary refer to nursing notes Bowel Incontinence: No Bladder Incontinence: No Posture slight trunk flexed posture Neuromuscular (Tone, Coordination, Reflexes) grossly intact Sensory Vision: Functional Hearing: Functional Sensation Right Lower Extremit: Impaired Sensation Left Lower Extremity: Impaired Transfers Functional [place] Measure 0=Not Assessed/NA 4=Minimal Assistance 1=Total Assistance 5=Supervision or Setup 2=Maximal Assistance 6=Modified [place] 3=Moderate Assistance 7=Complete [place] Transfers (B, C, W/C) (FIM): 5 Scootin Rollin Supine to/from Sit: 6 Sit to/from Stand: 5 Gait Mode of Locomotion: Walk Anticipated Mode of Locomotion: Walk Gait (FIM): 5 Distance (FIM): 3=150 ft Distance: 300' Gait Level of Assist: 5 Gait Assistive Device: FWW Comments/Gait Description extended UE's with FWW use Balance Sitting Static: Normal Sitting Dynamic: Normal Standing Static: Normal Standing Dynamic: Normal Assessment/Needs 62 y.o. female, will be seen x 2 sessions to ensure safety with functional mobility to safely return to [facility] at [facility]. Rehab Potential: Fair PT Short Term Goals Short Term Goals Time Frame: Oct 14, 2017 Transfers (B,C,W/C) (FIM): 6 Gait (FIM): 6 Distance (FIM): 3=150 ft Gait Level of Assist: 6 PT Plan Treatment/Plan Treatment Plan: Continue Plan of Care Treatment Plan: Education, Functional Activity Ani, Functional Strength, Gait , Safety, Therapeutic Exercise Treatment Duration: Oct 14, 2017 Frequency: 2 times per week Estimated Hrs Per Day: .25 hour per day Patient and/or Family Agrees t: Yes Discharge Recommendations Therapy D/C Recommendations: Home w/ Family Support, Home Independently Time/GCodes Time In: 1045 Time Out: 1106 Total Billed Treatment Time: 21 Total Billed Treatment 1 visit EVModC 21 min G Codes Necessary: Yes PT/OT Therapy GCodes Therapy Functional Limitation: Physical Therapy Test(s)/Tool used to determine: FIM Functional Limitation-Current Modifier: CJ Functional Limitation-Goal Charge Code: MOBGOAL Modifier: LEXI RUDOLPH PT Oct 13, 2017 11:30
[2017-10-13 12:00] VITALS: BP 126/61
--- NOTE | 2017-10-13 14:37 | Consultation-Cardiology ---
HPI-Cardiology Cardiology Consultation: Date of Consultation 10/13/17 Time Seen by Provider: 10:30 Date of Admission 10/12/17 Attending Physician Stefani Syed DO Admitting Physician German Longoria MD Consulting Physician RANDY CAMARILLO MD, MA, FACP, FACC, FSCAI, CCDS HPI: Chief Complaint: Near syncope Ms. Medrano is a 62 year old female admitted to 410 from the ED with near syncope and AMS. She reports she was visiting her daughter yesterday when she started to have hallucinations and "was talking to people that weren't there". She reports dizziness and lightheadedness. She states she fell once d/t losing her balance. She does not report any syncope or near syncope. She states she has been having frequent nausea and vomiting since having the flu in May of this year. She reports she has been following with her PCP regarding this. She reports chronic mild to mod exertional dyspnea which is unchanged. She denies any CP or palpitations. She denies any LE edema. She reports she is currently feeling better. She has been up to BR without and difficulty. Review of Systems-Cardiology Review of Systems Constitutional: malaise Eyes: No vision change Ears/Nose/Throat: No epistaxis, No recent hearing loss Respiratory: As described under HPI Cardiovascular: As described under HPI Gastrointestinal: nausea, vomiting Musculoskeletal: back pain (chronic), joint pain (chronic) Skin: No rash, No ulcerations Psychiatric/Neurological: As described under HPI, depression Hematologic: No bleeding abnormalities All Other Systems Reviewed Negative Unless Noted: Yes QSY-Hysrxq-Oyordp Hx Patient Social History Employed/Student: retired Alcohol Use: Denies Use Recreational Drug Use: No Smoking Status: Former Smoker Recent Foreign Travel: No Recent Infectious Disease Expo: No Hospitalization with Isolation: Denies Physical Abuse Screen: No Sexual Abuse: No Past Medical History PMH As described under Assessment. Family Medical History Family Medical History: Father - CAD, CABG, carotid disease and AAA (first diagnosed in his 60's) Brother - CAD, CABG (late 60's) Mother - CAD Allergies and Home Medications Allergies Coded Allergies: Penicillins (Verified Allergy, Unknown, 10/12/17) Home Medications Baclofen 10 Mg Tablet, 10 MG PO TID PRN for MUSCLE SPASMS, (Reported) Buspirone HCl 10 Mg Tablet, 10 MG PO BID, (Reported) Buspirone HCl 10 Mg Tablet, 10 MG PO 1200 PRN for ANXIETY, (Reported) Cholecalciferol (Vitamin D3) 5,000 Unit Capsule, 5,000 UNIT PO DAILY, (Reported) Levocetirizine Dihydrochloride 5 Mg Tablet, 5 MG PO HS, (Reported) Magnesium Chloride 64 Mg Tab, 64 MG PO BID, (Reported) Metformin HCl 850 Mg Tablet, 850 MG PO BID, (Reported) Montelukast Sodium 10 Mg Tablet, 10 MG PO HS, (Reported) Nystatin 60 Gm Powder, TOP BID PRN for RASH, (Reported) Omeprazole 20 Mg Capsule.dr, 20 MG PO DAILY, (Reported) Rosuvastatin Calcium 20 Mg Tablet, 20 MG PO HS, (Reported) Sulfasalazine 500 Mg Tablet, 1,000 MG PO BID, (Reported) TAKES 2 (500MG) TABLETS Tramadol HCl 50 Mg Tablet, 50 MG PO Q6H PRN for PAIN-MODERATE, (Reported) Trazodone HCl 150 Mg Tablet, 150 MG PO HS, (Reported) Venlafaxine HCl 150 Mg Cap.er.24h, 150 MG PO DAILY, (Reported) Patient Home Medication List Home Medication List Reviewed: Yes Physical Exam-Cardiology Physical Exam Vital Signs/I&O 10/13/17 10/13/17 10/13/17 10/13/17 04:00 07:00 08:00 12:00 Temp 97.4 98.0 98.3 Pulse 77 80 76 86 Resp 20 20 18 B/P (MAP) 116/73 (87) 145/66 (92) 126/61 (82) Pulse Ox 92 91 93 O2 Delivery Room Air Room Air Room Air 10/13/17 13:00 Pulse 97 10/13/17 00:00 Intake Total 100 ml Balance 100 ml Capillary Refill : Less Than 3 Seconds Constitutional: AAO x 3, well-developed, well-nourished HEENT: PERRL, hearing is well preserved, oral hygience is good; No xanthelasmas are seen Neck: No carotid bruit Respiratory: No accessory muscle use, No respiratory distress; lungs clear to auscultation, other (prolonged expiratory phase) Cardiovascular: regular rate-rhythm; No JVD; S1 and S2, systolic murmur (faint IRISH at card base) Gastrointestinal: No tender; soft, round, audible bowel sounds Rectal: deferred Extremities: No clubbing, No cyanosis; no lower extremity edema bilateral Neurologic/Psychiatric: grossly intact Skin: No rash, No ulcerations Data Review Labs Laboratory Tests 10/12/17 15:40: White Blood Count 25.3H, Red Blood Count 3.35L, Hemoglobin 10.2L, Hematocrit 31L , Mean Corpuscular Volume 91, Mean Corpuscular Hemoglobin 30, Mean Corpuscular Hemoglobin Concent 33, Red Cell Distribution Width 17.1H, Platelet Count 285, Mean Platelet Volume 9.6, Neutrophils (%) (Auto) 79H, Lymphocytes (%) (Auto) 11L , Monocytes (%) (Auto) 9, Eosinophils (%) (Auto) 1, Basophils (%) (Auto) 0, Neutrophils # (Auto) 19.9H, Lymphocytes # (Auto) 2.7, Monocytes # (Auto) 2.4H, Eosinophils # (Auto) 0.3, Basophils # (Auto) 0.1, Neutrophils % (Manual) 83, Lymphocytes % (Manual) 9, Monocytes % (Manual) 7, Eosinophils % (Manual) 0, Basophils % (Manual) 0, Band Neutrophils 1, Blood Morphology Comment NORMAL, Sodium Level 132L, Potassium Level 4.6, Chloride Level 101, Carbon Dioxide Level 23, Anion Gap 8, Blood Urea Nitrogen 30H, Creatinine 1.24, Estimat Glomerular Filtration Rate 44, BUN/Creatinine Ratio 24, Glucose Level 126H, Calcium Level 9.7, Magnesium Level 1.2L, Total Bilirubin 0.4, Aspartate Amino Transf (AST/SGOT) 40H, Alanine Aminotransferase (ALT/SGPT) 27, Alkaline Phosphatase 64, Troponin I < 0.30, C-Reactive Protein High Sensitivity 1.57H, Total Protein 7.2, Albumin 3.8, TSH [place] Testing 1.40, Serum Alcohol < 10 10/12/17 16:20: Urine Color YELLOW, Urine Clarity CLEAR, Urine pH 6, Urine Specific [place] 1.020, Urine Protein 1+H, Urine Glucose (UA) NEGATIVE, Urine Ketones NEGATIVE, Urine Nitrite NEGATIVE, Urine Bilirubin NEGATIVE, Urine Urobilinogen NORMAL, Urine Leukocyte Esterase 1+H, Urine RBC (Auto) 2+H, Urine RBC 2-5H, Urine WBC 2- 5, Urine Squamous Epithelial Cells 0-2, Urine Crystals NONE, Urine Bacteria NONE , Urine Casts NONE, Urine Mucus TRACE, Urine Culture Indicated NO, Urine Opiates Screen NEGATIVE, Urine Oxycodone Screen NEGATIVE, Urine Methadone Screen NEGATIVE, Urine Propoxyphene Screen NEGATIVE, Urine Barbiturates Screen NEGATIVE, Ur Tricyclic Antidepressants Screen NEGATIVE, Urine Phencyclidine Screen NEGATIVE, Urine Amphetamines Screen NEGATIVE, Urine Methamphetamines Screen NEGATIVE, Urine Benzodiazepines Screen NEGATIVE, Urine Cocaine Screen NEGATIVE, Urine Cannabinoids Screen NEGATIVE 10/13/17 05:20: White Blood Count 12.2H, Red Blood Count 3.11L, Hemoglobin 9.5L, Hematocrit 29L , Mean Corpuscular Volume 93, Mean Corpuscular Hemoglobin 31, Mean Corpuscular Hemoglobin Concent 33, Red Cell Distribution Width 17.5H, Platelet Count 259, Mean Platelet Volume 9.3, Neutrophils (%) (Auto) 61, Lymphocytes (%) (Auto) 22, Monocytes (%) (Auto) 13H, Eosinophils (%) (Auto) 4, Basophils (%) (Auto) 0, Neutrophils # (Auto) 7.4, Lymphocytes # (Auto) 2.6, Monocytes # (Auto) 1.5H, Eosinophils # (Auto) 0.5H, Basophils # (Auto) 0.1, Magnesium Level 1.8 Laboratory Tests 10/12/17 15:40 10/13/17 05:20 A/P-Cardiology Assessment/Admission Diagnosis Ac mental status change, etiology undetermined, managed by Dr Syed Leucocytosis and anemia of undetermined etiology, managed by Dr Syed Dizziness and postural hypotension at presentation likely d/t dehydration Electrolyte abnormalities and dehydration d/t chronic n/v and diuretic tx COPD HTN HLP - statin tx H/O rheumatic fever as a child Chronic joint pain RA Diabetic neuropathy DM II GERD H/O tobaccoism - quit 5 years ago Family h/o CAD - Father - CAD, CABG, carotid disease and AAA (first diagnosed in his 60's) Brother - CAD, CABG (late 60's) Mother - CAD Mild bilat carotid dz per u/s of 10-12-17 Discussion and Recomendations Replace electrolytes Stop diuretics Outpatient card f/u advised I had a detailed discussion with her regarding her CV issues and answered questions Advise to continue to refrain from tobacco use Clinical Quality Measures DVT/VTE Risk/Contraindication: Risk Factor Score Per Nursin RFS Level Per Nursing on Admit: 4+=Very High RANDY CAMARILLO MD FACP FACC CCDS Oct 13, 2017 14:37
[2017-10-13] MEDS ORDERED: traZODone 150 MG (DESYREL) TABLET PO SCH (21:00)
[2017-10-13] MEDS ORDERED: ROSUVASTATIN 20 MG (CRESTOR) TABLET PO SCH (21:00)
[2017-10-13] MEDS ORDERED: LORATADINE (CLARITIN) 10 MG TAB PO SCH (21:00)
[2017-10-13] MEDS ORDERED: sulfaSALAzine 500 MG (AZULFIDINE) TAB PO SCH (21:00)
[2017-10-13] MEDS ORDERED: MONTELUKAST 10 MG (SINGULAIR) TAB PO SCH (21:00)
[2017-10-13] MEDS ORDERED: METFORMIN HCL 850 MG PO SCH (21:00)
[2017-10-14] MEDS ORDERED: VITAMIN D3 5,000 UNITS (CHOLECALCIFEROL ) CAPSULE PO SCH (07:00)
[2017-10-14] MEDS ORDERED: lisINopril 20 MG (PRINIVIL) TABLET PO SCH (09:00)
[2017-10-14] MEDS ORDERED: NON-FORMULARY MEDICATION 1 EA EA (Venlafaxine HCl (Venlafaxine HCl ER) 150 MG) PO SCH (09:00)
[2017-10-14] MEDS ORDERED: NON-FORMULARY MEDICATION 1 EA EA (Spironolactone 50 MG) PO SCH (09:00)
[2017-10-14] MEDS ORDERED: HYDROCHLOROTHIAZIDE 25 MG (HCTZ) TAB PO SCH (09:00)
[2017-10-14] MEDS ORDERED: OMEPRAZOLE 20 MG (PriLOSEC) CAP NON-FORMULARY PO SCH (09:00)
== END 2017-10-13 11:03 | disposition home or self-care (01) ==
LOC: EDUNIT# 15:26 → ER 15:27 → UNDOADMOB 18:30 → 4TH 18:30 → UNDODISOB 10-13 16:30
PROVIDERS: ADMIT Internal Medicine; ATTEND Internal Medicine
DX: R41.82 Altered mental status, unspecified (principal); D72.829 Elevated white blood cell count, unspecified; D64.9 Anemia, unspecified; R42 Dizziness and giddiness; I95.9 Hypotension, unspecified; E86.0 Dehydration; J44.9 Chronic obstructive pulmonary disease, unspecified; I10 Essential (primary) hypertension; E78.5 Hyperlipidemia, unspecified; M06.9 Rheumatoid arthritis, unspecified; E11.42 Type 2 diabetes mellitus with diabetic polyneuropathy; K21.9 Gastro-esophageal reflux disease without esophagitis; I77.89 Other specified disorders of arteries and arterioles; Z82.49 Family history of ischemic heart disease and other diseases of the circulatory system; Z87.891 Personal history of nicotine dependence; G24.9 Dystonia, unspecified; E87.1 Hypo-osmolality and hyponatremia; R25.2 Cramp and spasm; E86.1 Hypovolemia
CPT/HCPCS: 36415; 70450; 71045; 80053; 80306; 80320; 81000; 83735; 84443; 84484; 85007; 85025; 85027; 86141; 93005; 93041; 93306; 93880; 96361; 96365; 96375; G0378

== ENCOUNTER → 2017-11-22 | Outpatient (CLI) | payer MEDICARE, MEDICAID ==
[~2017-11-22] MED LIST: BACL10TA PO; BUSP10TA95 PO; CATHETER FLUSH 10 ML SYR IV PRN; CHOL5000 PO; LEVO5TAB12 PO; LISI1TAB10 PO; METF850T2 PO; MONT10TA24 PO; MTX2.5T PO; NF-MAG64T PO; NYST60PO TOP; OMEP20CA12 PO; REGADENOSON 0.4 MG/5 ML SYR (LEXISCAN) IV ONE; ROSU20TA31 PO; SPIR50TA4 PO; SULF500T7 PO; TRAM50TA2 PO; TRAZ150T72 PO; VENL150C98 PO
[2017-11-22 09:36] VITALS: BP 142/83
--- NOTE | 2017-11-22 22:44 | STRESS TEST ---
DATE OF SERVICE: 11/22/2017 RESTING AND POST REGADENOSON TECHNETIUM-99M TETROFOSMIN SPECT CT IMAGING. ORDERING PHYSICIAN: Valery Alexandra APRN PRIMARY PHYSICIAN: Dr. Longoria. CLINICAL DIAGNOSES: Shortness of breath, hyperlipidemia and diabetes. Baseline images were carried out after injection of 10.64 mCi technetium-99m Tetrofosmin. This was followed by 0.4 mg regadenoson and 30.6 mCi of technetium-99m Tetrofosmin for stress imaging. The electrocardiogram showed sinus rhythm at baseline and did not change significantly with regadenoson infusion. Review of images at rest and following stress does not indicate any significant perfusion defects consistent with myocardial ischemia or infarction. Gated images show normal global left ventricular systolic function, normal regional wall motion. Left ventricular ejection fraction is calculated to be 61%. Left ventricular end-diastolic volume is 42 mL. TID is absent (1.04). CONCLUSIONS: 1. No evidence of any significant myocardial ischemia or infarction on this study. 2. Normal regional wall motion. 3. Normal global left ventricular systolic function with a calculated ejection fraction of 61%. 4. Normal left ventricular cavity size. 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
== END ==
LOC: CARD 08:12
PROVIDERS: ATTEND Nurse Practitioner Family
DX: E78.5 Hyperlipidemia, unspecified (principal); E11.9 Type 2 diabetes mellitus without complications; J43.8 Other emphysema; R06.09 Other forms of dyspnea; E66.8 Other obesity
CPT/HCPCS: 78452; 93017

== ENCOUNTER 2018-02-16 10:59 | Inpatient (IN) | payer MEDICARE, MEDICAID ==
[~2018-02-16] VITALS: Ht 157.5 cm; Wt 94.8 kg
[~2018-02-16 10:59] MED LIST changes: -CATHETER FLUSH 10 ML SYR IV PRN; +METF-398 PO; -METF850T2 PO; -REGADENOSON 0.4 MG/5 ML SYR (LEXISCAN) IV ONE
[2018-02-16] MEDS ORDERED: fentaNYL INJECTION 100 MCG/2 ML AMP IVP STA (11:13)
[2018-02-16] MEDS ORDERED: ACETAMINOPHEN 500 MG TAB (TYLENOL) PO PRN (11:15)
[2018-02-16 11:29] LABS: BASOPHILS # (AUTO) 0.1 10^3/uL (0.0-0.1); BASOPHILS % (AUTO) 0 % (0-10); EOSINOPHILS # (AUTO) 0.2 10^3/uL (0.0-0.3); EOSINOPHILS % (AUTO) 1 % (0-10); HEMATOCRIT 36 % (35-52); HEMOGLOBIN 11.5 G/DL (11.5-16.0); LYMPHOCYTES # (AUTO) 2.2 X 10^3 (1.0-4.0); LYMPHOCYTES % (AUTO) 13 % (12-44); MEAN CORPUSCULAR HEMOGLOBIN 27 PG (25-34); MEAN CORPUSCULAR HGB CONC 32 G/DL (32-36); MEAN CORPUSCULAR VOLUME 84 FL (80-99); MEAN PLATELET VOLUME 9.3 FL (7.4-10.4); MONOCYTES % (AUTO) 12 % (0-12); NEUTROPHILS # (AUTO) 12.8 X 10^3 (1.8-7.8); NEUTROPHILS % (AUTO) 74 % (42-75); PLATELET COUNT 275 10^3/uL (130-400); RED BLOOD COUNT 4.31 10^6/uL (4.35-5.85); RED CELL DISTRIBUTION WIDTH 16.5 % (10.0-14.5); WHITE BLOOD COUNT 17.2 10^3/uL (4.3-11.0)
[2018-02-16 11:30] LABS: BILIRUBIN,URINE NEGATIVE (NEGATIVE); CLARITY,URINE CLEAR; COLOR,URINE YELLOW; GLUCOSE, URINE (UA) NEGATIVE (NEGATIVE); KETONES,URINE NEGATIVE (NEGATIVE); LEUKOCYTE ESTERASE ,URINE NEGATIVE (NEGATIVE); NITRITE,URINE NEGATIVE (NEGATIVE); PH,URINE 6 (5-9); PROTEIN,URINE 2+ (NEGATIVE); UROBILINOGEN,URINE NORMAL (NORMAL)
[2018-02-16 11:40] LABS: INR 1.2 (0.8-1.4); PROTHROMBIN TIME PATIENT 15.4 SEC (12.2-14.7)
--- NOTE | 2018-02-16 11:41 | ED General ---
General Stated Complaint: BACK PAIN Source of Information: Patient Exam Limitations: No Limitations History of Present Illness Date Seen by Provider: Feb 16, 2018 Time Seen by Provider: 10:59 Initial Comments Here with report of mid back pain that has been going on for 2 days. States pain is so bad she is benign or malignant out of bed and has been urinating on herself. Thinks she may have pneumonia. EMS was called and brought her here. Patient does have mild fever. Not specifically short of breath but does have cough. She is from [place] but is staying at her daughter's house in [place], [place]. Patient reports severe pain. She is not really taking anything for it. States that she was centimeters lumbar pain but the thoracic pain is worse. States it hurts with deep breathing. Timing/Duration: 2-3 Days Severity: Moderate, Severe Modifying Factors: improves with Immobilization; worse with Movement Associated Systoms: No Chest Pain, No Cough; Fever/Chills; No Nausea/Vomiting, No Shortness of Air; Weakness Allergies and Home Medications Allergies Coded Allergies: Penicillins (Verified Allergy, Unknown, 10/12/17) Home Medications Baclofen 10 Mg Tablet, 10 MG PO TID PRN for MUSCLE SPASMS, (Reported) Buspirone HCl 10 Mg Tablet, 10 MG PO BID, (Reported) Buspirone HCl 10 Mg Tablet, 10 MG PO 1200 PRN for ANXIETY, (Reported) Cholecalciferol (Vitamin D3) 5,000 Unit Capsule, 5,000 UNIT PO DAILY, (Reported) Levocetirizine Dihydrochloride 5 Mg Tablet, 5 MG PO HS, (Reported) Magnesium Chloride 64 Mg Tab, 64 MG PO BID, (Reported) Metformin HCl 850 Mg Tablet, 850 MG PO BID, (Reported) Montelukast Sodium 10 Mg Tablet, 10 MG PO HS, (Reported) Nystatin 60 Gm Powder, TOP BID PRN for RASH, (Reported) Omeprazole 20 Mg Capsule.dr, 20 MG PO DAILY, (Reported) Rosuvastatin Calcium 20 Mg Tablet, 20 MG PO HS, (Reported) Sulfasalazine 500 Mg Tablet, 1,000 MG PO BID, (Reported) TAKES 2 (500MG) TABLETS Tramadol HCl 50 Mg Tablet, 50 MG PO Q6H PRN for PAIN-MODERATE, (Reported) Trazodone HCl 150 Mg Tablet, 150 MG PO HS, (Reported) Venlafaxine HCl 150 Mg Cap.er.24h, 150 MG PO DAILY, (Reported) Patient Home Medication List Home Medication List Reviewed: Yes Review of Systems Review of Systems Constitutional: see HPI, chills, fever, weakness EENTM: no symptoms reported Respiratory: No cough, No short of breath Cardiovascular: No chest pain, No edema Gastrointestinal: No abdominal pain, No nausea, No vomiting Genitourinary: No dysuria; incontinence : No Musculoskeletal: see HPI, back pain, muscle pain Skin: No change in color, No rash Psychiatric/Neurological: Anxiety; Denies Headache; Weakness All Other Systems Reviewed Negative Unless Noted: Yes Past Ujgxxaq-Skiigf-Ochwoy Hx Past Med/Social Hx: Reviewed Nursing Past Med/Soc Hx Patient Social History Alcohol Use: Denies Use Recreational Drug Use: No Smoking Status: Never a Smoker Seasonal Allergies Seasonal Allergies: No Past Medical History Surgeries: Yes Adenoidectomy, Orthopedic, Tonsillectomy Respiratory: Yes COPD Neurological: Yes Neuropathy UTI-Chronic Musculoskeletal: Yes Degenerate Disk Disease, Rheumatoid Arthritis Endocrine: Yes (DM) Cancer: No Anxiety, Depression Blood Disorders: No Adverse Reaction/Blood Tranf: No Family Medical History Reviewed Nursing Family Hx No Pertinent Family Hx, Hypertension Physical Exam-Suspected Sepsis Physical Exam Vital Signs Vital Signs - First Documented 02/16/18 02/16/18 11:01 11:18 Temp 100.8 Pulse 82 Resp 20 B/P (MAP) 160/95 (116) Pulse Ox 92 O2 Delivery Room Air O2 Flow Rate 2.00 Capillary Refill : Height, Weight, BMI Height: 5'2.00" Weight: 204lbs. 0.0oz. 92.050132hi; 37.3 BMI Method:Stated General Appearance: WD/WN, Anxious, Mild Distress HEENT: PERRL/EOMI, Pharynx Normal Neck: Full Range of Motion, Non Tender, Supple Respiratory: No Accessory Muscle Use, Crackles (bilateral bases) Cardiovascular: Regular Rate, Rhythm, No Murmur Gastrointestinal: Non Tender, Soft Back: Other (reports tenderness but appears to be in different spots in the thoracic and lumbar region and not always present. Both central and lateral. Unable to identify specific area. No obvious deformity) Extremity: Normal Capillary Refill, Non Tender Neurologic/Psychiatric: Alert, Oriented x3 Skin: normal color, warm/dry Focused Exam Lactate Level 02/16/18 11:18: Lactic Acid Level 1.29 Lactic Acid Level Laboratory Tests Test 02/16/18 11:18 Lactic Acid Level 1.29 MMOL/L (0.50-2.00) Progress/Results/Core Measures Suspected Sepsis SIRS Temperature: Pulse: Respiratory Rate: Laboratory Tests 02/16/18 11:18: White Blood Count 17.2H Blood Pressure / Mean: 02/16/18 11:18: Lactic Acid Level 1.29 Laboratory Tests 02/16/18 11:18: Creatinine 0.76, INR Comment 1.2, Platelet Count 275, Total Bilirubin 0.6 Results/Orders Lab Results Laboratory Tests Test 02/16/18 11:18 Range/Units White Blood Count 17.2 H 4.3-11.0 10^3/uL Red Blood Count 4.31 L 4.35-5.85 10^6/uL Hemoglobin 11.5 11.5-16.0 G/DL Hematocrit 36 35-52 % Mean Corpuscular Volume 84 80-99 FL Mean Corpuscular Hemoglobin 27 25-34 PG Mean Corpuscular Hemoglobin Concent 32 32-36 G/DL Red Cell Distribution Width 16.5 H 10.0-14.5 % Platelet Count 275 130-400 10^3/uL Mean Platelet Volume 9.3 7.4-10.4 FL Neutrophils (%) (Auto) 74 42-75 % Lymphocytes (%) (Auto) 13 12-44 % Monocytes (%) (Auto) 12 0-12 % Eosinophils (%) (Auto) 1 0-10 % Basophils (%) (Auto) 0 0-10 % Neutrophils # (Auto) 12.8 H 1.8-7.8 X 10^3 Lymphocytes # (Auto) 2.2 1.0-4.0 X 10^3 Monocytes # (Auto) 2.0 H 0.0-1.0 X 10^3 Eosinophils # (Auto) 0.2 0.0-0.3 10^3/uL Basophils # (Auto) 0.1 0.0-0.1 10^3/uL Neutrophils % (Manual) 79 % Lymphocytes % (Manual) 13 % Monocytes % (Manual) 5 % Eosinophils % (Manual) 2 % Basophils % (Manual) 0 % Band Neutrophils 1 % Blood Morphology Comment NORMAL Prothrombin Time 15.4 H 12.2-14.7 SEC INR Comment 1.2 0.8-1.4 Activated Partial Thromboplast Time 31 24-35 SEC Urine Color YELLOW Urine Clarity CLEAR Urine pH 6 5-9 Urine Specific [place] 1.010 L 1.016-1.022 Urine Protein 2+ H NEGATIVE Urine Glucose (UA) NEGATIVE NEGATIVE Urine Ketones NEGATIVE NEGATIVE Urine Nitrite NEGATIVE NEGATIVE Urine Bilirubin NEGATIVE NEGATIVE Urine Urobilinogen NORMAL NORMAL MG/DL Urine Leukocyte Esterase NEGATIVE NEGATIVE Urine RBC (Auto) NEGATIVE NEGATIVE Urine RBC RARE /HPF Urine WBC NONE /HPF Urine Squamous Epithelial Cells RARE /HPF Urine Crystals PRESENT H /LPF Urine Amorphous Sediment RARE LIZ URATES H /LPF Urine Bacteria TRACE /HPF Urine Casts NONE /LPF Urine Mucus SMALL H /LPF Urine Culture Indicated NO Sodium Level 136 135-145 MMOL/L Potassium Level 3.5 L 3.6-5.0 MMOL/L Chloride Level 100 98-107 MMOL/L Carbon Dioxide Level 25 21-32 MMOL/L Anion Gap 11 5-14 MMOL/L Blood Urea Nitrogen 7 7-18 MG/DL Creatinine 0.76 0.60-1.30 MG/DL Estimat Glomerular Filtration Rate > 60 BUN/Creatinine Ratio 9 Glucose Level 116 H 70-105 MG/DL Lactic Acid Level 1.29 0.50-2.00 MMOL/L Calcium Level 10.0 8.5-10.1 MG/DL Corrected Calcium 10.3 H 8.5-10.1 MG/DL Magnesium Level 1.0 *L 1.8-2.4 MG/DL Total Bilirubin 0.6 0.1-1.0 MG/DL Aspartate Amino Transf (AST/SGOT) 14 5-34 U/L Alanine Aminotransferase (ALT/SGPT) 14 0-55 U/L Alkaline Phosphatase 79 40-136 U/L Total Protein 8.0 6.4-8.2 GM/DL Albumin 3.6 3.2-4.5 GM/DL Micro Results Microbiology 02/16/18 Influenza Types A,B Antigen (HI) - Final, Complete My Orders Orders - JAKOB CARDONA MD Cbc With Automated Diff (02/16/18 11:13) Comprehensive Metabolic Panel (02/16/18 11:13) Blood Culture (02/16/18 11:13) Sputum Culture (02/16/18 11:13) Urinalysis (02/16/18 11:13) Urine Culture (02/16/18 11:13) Protime With Inr (02/16/18 11:13) Partial Thromboplastin Time (02/16/18 11:13) Chest 1 View, Ap/Pa Only (02/16/18 11:13) Acetaminophen Tablet (Tylenol Tablet) (02/16/18 11:15) Saline Lock/Iv-Start (02/16/18 11:13) Vital Signs Adult Sepsis Patie Q15M (02/16/18 11:13) O2 (02/16/18 11:13) Remove Rings In Anticipation O (02/16/18 11:13) Lactic Acid Analyzer (02/16/18 11:13) Influenza A And B Antigens (02/16/18 11:13) Fentanyl Injection (Sublimaze Injection (02/16/18 11:13) Manual Differential (02/16/18 11:18) Ct Angio Chest W (02/16/18 12:08) Catheter(Urinary) Insert & Ass 03,15 (02/16/18 12:08) Iohexol Injection (Omnipaque 350 Mg/Ml 1 (02/16/18 12:30) Ns (Ivpb) (Sodium Chloride 0.9%) (02/16/18 12:30) Pharmacy Communication (Pharmacy Communi (02/16/18 12:29) Saline Lock/Iv-Start (02/16/18 13:35) Ns Iv 1000 Ml (Sodium Chloride 0.9%) (02/16/18 13:35) Magnesium (02/16/18 13:35) Cefepime Injection (Maxipime Injection) (02/16/18 14:00) Oseltamivir 75 Mg Capsule (Tamiflu 75 (02/16/18 14:00) Magnesium 1 Gm/100 Ml Ivpb (Magnesium Rodriguez (02/16/18 14:00) Medications Given in ED Current Medications Medications Dose Ordered Sig/Neto Route Start Time Stop Time Status Last Admin Dose Admin Acetaminophen 1,000 mg ONCE PRN PO 02/16/18 11:15 02/16/18 11:37 DC 02/16/18 11:36 1,000 MG Iohexol 125 ml ONCE ONCE IV 02/16/18 12:30 02/16/18 12:34 DC 02/16/18 12:49 125 ML Sodium Chloride 250 ml ONCE ONCE IV 02/16/18 12:30 02/16/18 12:34 DC 02/16/18 12:49 80 ML Vital Signs/I&O 02/16/18 02/16/18 11:01 11:18 Temp 100.8 Pulse 82 Resp 20 B/P (MAP) 160/95 (116) Pulse Ox 92 98 O2 Delivery Room Air Nasal Cannula O2 Flow Rate 2.00 Capillary Refill : Progress Note : Progress Note Seen and evaluated. IV, labs, chest x-ray, UA, blood cultures and lactic acid, Tylenol 1 g by mouth, normal saline 1 L bolus and fentanyl 75 g IV ordered. Monitor patient. CT chest ordered. Pain is improved after medicines. We will evaluate for pulmonary embolus given the low-grade fever and back pain with breathing. 1340: CT results noted. Patient has been hypotensive in the 80s over 40s although improved now to 111/66. Given her fever, elevated white count and hypotension, we will go ahead and initiate high-volume fluid resuscitation. Patient has history of hypomagnesemia and this was added to the lab. Anticipate admission. We will start second line. Patient is PMI greater than 30 so we will use ideal body weight of 51 kg based on height. Adjusted body weight would be [address], 2 L of normal saline will exceed the 30 mL/kg requirement and this has been ordered. I will talk with the hospitalist about admission and antibiotic choices. 1400: I did discuss the case with Dr. Patino and she accepts patient for admission, inpatient status. We will treat as for sepsis although causes undetermined. Cefepime 1 g IV has been initiated. Patient's magnesium level is low so we will give 1 g of mag IV now and second gram of magnesium IV after arrival to the floor. There is influenza in the community and influenza screen was negative but we will go ahead and treat for that as well since we have no other cause. I attest to focused exam at this time with blood pressure 116/63, heart rate 71 and O2 sat of 98 percent on room air. Diagnostic Imaging Diagonstic Imaging: Xray Plain Films/CT/US/NM/MRI: chest Comments NAME: KRISTYN ROSS [facility] REC#: [id number] PT STATUS: REG ER : 1955 PHYSICIAN: JAKOB CARDONA MD ADMIT DATE: 02/16/18/ER Draft Date of Exam:02/16/18 CHEST 1 VIEW, AP/PA ONLY INDICATION: Severe back pain. Portable upright AP view of the chest obtained with comparison made to study of 10/12/2017. Overall heart size and pulmonary vascularity within normal limits. There is elevation of right hemidiaphragm. No pneumothorax or consolidation is identified. IMPRESSION: Stable chest with elevation of the right hemidiaphragm. Dictated on workstation # [id number] Dict: 02/16/18 1158 Trans: 02/16/18 1203 [facility] [id number] Interpreted by: MEDHAT NAM MD Electronically signed by: Reviewed: Reviewed by Me Diagonstic Imaging: CT Plain Films/CT/US/NM/MRI: chest Comments NAME: KRISTYN ROSS [facility] REC#: [id number] PT STATUS: REG ER : 1955 PHYSICIAN: JAKOB CARDONA MD ADMIT DATE: 02/16/18/ER Signed Date of Exam: 02/16/18 CT ANGIO CHEST W PROCEDURE: CT angiography of the chest with contrast. TECHNIQUE: Multiple contiguous axial images were obtained through the chest after uneventful bolus administration of intravenous contrast. 2D reconstructed CTA MIP acquisitions were also performed. INDICATION: Upper back pain for 3 days. COMPARISON: Chest x-ray from the same day. FINDINGS: The pulmonary arteries are diagnostic to the segmental level. No filling defects are seen to indicate pulmonary embolus. The aorta demonstrates minimal atherosclerosis with no evidence of dissection or aneurysm. The heart is normal in size. There is no pericardial effusion. No significant mediastinal adenopathy is seen. There is bibasilar and dependent atelectasis and scarring. No significant pleural effusion or pneumothorax is seen. No central endobronchial lesions are seen. The imaged portions of the upper abdomen demonstrate moderate stool in the colon with no acute abnormality. There is fatty atrophy of the pancreas. There are mild degenerative changes in the thoracic spine with no acute fracture or vertebral body height loss seen. IMPRESSION: 1. No pulmonary embolus. No acute pulmonary abnormality seen. There is bibasilar and dependent atelectasis and scarring. Dictated by: Dictated on workstation # [id number] Dict: 02/16/18 1314 Trans: 02/16/18 1326 Interpreted by: LYNNE PINZON MD Electronically signed by: LYNNE PINZON MD 02/16/18 1326 Departure Communication (Admissions) Time/Spoke to Admitting Phy: 13:55 Impression Primary Impression: Pneumonia Qualified Codes: J18.9 - Pneumonia, unspecified organism Additional Impressions: Fever Qualified Codes: R50.9 - Fever, unspecified Sepsis Qualified Codes: A41.9 - Sepsis, unspecified organism Disposition: ADMITTED INPATIENT Condition: Stable Admissions Decision to Admit Reason: Admit from ER (General) Decision to Admit/Date: Feb 16, 2018 Time/Decision to Admit Time: 13:55 Departure-Patient Inst. Referrals: NISREEN LOU MD (PCP/Family) Primary Care Physician JAKOB CARDONA MD Feb 16, 2018 11:41
[2018-02-16 11:43] LABS: AMORPHOUS SEDIMENT,UR RARE AMOR URATES /LPF; BACTERIA,URINE TRACE /HPF; RBC,URINE RARE /HPF; SQUAMOUS EPITHELIAL CELL,UR RARE /HPF
[2018-02-16 11:47] LABS: ALANINE AMINOTRANSFERASE 14 U/L (0-55); ALBUMIN 3.6 GM/DL (3.2-4.5); ALKALINE PHOSPHATASE 79 U/L (40-136); BILIRUBIN,TOTAL 0.6 MG/DL (0.1-1.0); BUN/CREATININE RATIO 9; CARBON DIOXIDE 25 MMOL/L (21-32); CHLORIDE 100 MMOL/L (98-107); CREATININE SERUM 0.76 MG/DL (0.60-1.30); GFR ESTIMATED > 60; GLUCOSE 116 MG/DL (70-105); POTASSIUM 3.5 MMOL/L (3.6-5.0); SODIUM 136 MMOL/L (135-145)
[2018-02-16 11:56] LABS: BAND NEUTROPHILS 1 %; BASOPHILS % (MANUAL) 0 %; EOSINOPHILS % (MANUAL) 2 %; LYMPHOCYTES % (MANUAL) 13 %; MONOCYTES % (MANUAL) 5 %; NEUTROPHILS % (MANUAL) 79 %
[2018-02-16 11:57] LABS: RBC MORPH NORMAL
--- NOTE | 2018-02-16 12:04 | Diagnostic Imaging Report ---
INDICATION: Severe back pain. Portable upright AP view of the chest obtained with comparison made to study of 10/12/2017. Overall heart size and pulmonary vascularity within normal limits. There is elevation of right hemidiaphragm. No pneumothorax or consolidation is identified. IMPRESSION: Stable chest with elevation of the right hemidiaphragm. Dictated by: Dictated on workstation # [id number]
[2018-02-16] MEDS ORDERED: IOHEXOL 350 MG/ML 150 ML (OMNIPAQUE 350) VIAL IV ONE (12:30)
[2018-02-16] MEDS ORDERED: NS 250 ML (IVPB) BAG IV ONE (12:30)
--- NOTE | 2018-02-16 13:25 | Diagnostic Imaging Report ---
PROCEDURE: CT angiography of the chest with contrast. TECHNIQUE: Multiple contiguous axial images were obtained through the chest after uneventful bolus administration of intravenous contrast. 2D reconstructed CTA MIP acquisitions were also performed. INDICATION: Upper back pain for 3 days. COMPARISON: Chest x-ray from the same day. FINDINGS: The pulmonary arteries are diagnostic to the segmental level. No filling defects are seen to indicate pulmonary embolus. The aorta demonstrates minimal atherosclerosis with no evidence of dissection or aneurysm. The heart is normal in size. There is no pericardial effusion. No significant mediastinal adenopathy is seen. There is bibasilar and dependent atelectasis and scarring. No significant pleural effusion or pneumothorax is seen. No central endobronchial lesions are seen. The imaged portions of the upper abdomen demonstrate moderate stool in the colon with no acute abnormality. There is fatty atrophy of the pancreas. There are mild degenerative changes in the thoracic spine with no acute fracture or vertebral body height loss seen. IMPRESSION: 1. No pulmonary embolus. No acute pulmonary abnormality seen. There is bibasilar and dependent atelectasis and scarring. Dictated by: Dictated on workstation # [id number]
[2018-02-16] MEDS: NS IV 1000 ML 1,000 ML IV SCH ×2 (13:45→13:56)
[2018-02-16] MEDS ORDERED: CEFEPIME INJECTION 1,000 MG in NS (IVPB) 50 ML IV ONE (14:00)
[2018-02-16] MEDS ORDERED: MAGNESIUM 1 GM/100 ML IVPB 100 ML IV ONE (14:00)
[2018-02-16] MEDS ORDERED: OSELTAMIVIR 75 MG (TAMIFLU) CAPSULE PO ONE (14:00)
--- NOTE | 2018-02-16 15:53 | History & Physical-Hospitalist ---
History of Present Illness HPI/Chief Complaint Pt is a 62yoCF with a PMH of RA, NIDDMII, HTN, and chronic hypomagnesemia who presented to the ER with back pain and cough. She states her symptoms started 2 days ago with body aches and back pain. She also developed a cough without sputum production. She states any movement hurts her back and her back pain got so severe that she was urinating on herself because she could not ambulate to the bathroom. She also had chills but did not check her temperature at home. She denies any nausea, vomiting,constipation, or diarrhea. She has not had her flu shot yet. She does not have any sick contacts. Source: patient Exam Limitations: no limitations Date Seen 02/16/18 Time Seen by a Provider: 15:51 Attending Physician Greer Patino MD PCP German Longoria MD Referring Physician Date of Admission Feb 16, 2018 at 2:52 pm Home Medications & Allergies Home Medications Reviewed patient Home Medication Reconciliation performed by pharmacy medication reconciliations forklift technician and/or nursing. Patients Allergies have been reviewed. Allergies Allergies Coded Allergies Penicillins (Verified Allergy, Unknown, 10/12/17) Past Cwkjvsu-Lglpfo-Snelfa Hx Past Med/Social Hx: Reviewed Nursing Past Med/Soc Hx Patient Social History Alcohol Use: Denies Use Recreational Drug Use: No Smoking Status: Never a Smoker Recent Foreign Travel: No Contact w/other who traveled: No Recent Infectious Disease Expo: No Immunizations Up To Date Tetanus Booster (TDap): Unknown Pediatric: Yes Seasonal Allergies Seasonal Allergies: No Past Medical History Surgeries: Adenoidectomy, Oophorectomy (x1 (born with 3 ovaries)), Orthopedic, Tonsillectomy Cardiac: Hypertension Neurological: Neuropathy Genitourinary: UTI-Chronic Musculoskeletal: Degenerate Disk Disease, Rheumatoid Arthritis Endocrine: Diabetes, Non-Insulin dep Psychosocial: Anxiety, Depression History of Blood Disorders: No Adverse Reaction to Blood Archibald: No Family History Reviewed Nursing Family Hx Heart Disease, CAD Under 55 Years Old, CAD Over 55 Years Old, Hypertension Review of Systems Constitutional: chills, fever, malaise, weakness EENTM: no symptoms reported Respiratory: cough; No phlegm, No short of breath Cardiovascular: No chest pain, No edema, No palpitations Gastrointestinal: No abdominal pain, No constipation, No diarrhea, No nausea, No vomiting Genitourinary: No discharge, No dysuria; incontinence (due to pain from ambulation) Musculoskeletal: back pain, joint pain, muscle pain, muscle cramps Skin: no symptoms reported Psychiatric/Neurological: No Symptoms Reported Physical Exam Physical Exam Vital Signs Vital Signs - First Documented 02/16/18 02/16/18 02/16/18 11:01 11:18 16:48 Temp 100.8 Pulse 82 Resp 20 B/P (MAP) 160/95 (116) Pulse Ox 92 O2 Delivery Room Air O2 Flow Rate 2.00 FiO2 28 Capillary Refill : Less Than 3 Seconds Height, Weight, BMI Height: 5'2.00" Weight: 190lbs. 0.0oz. 86.660398gd; 37.3 BMI Method:Stated General Appearance: No Apparent Distress, WD/WN, Obese HEENT: PERRL/EOMI, Moist Mucous Membranes Neck: Non Tender, Supple Respiratory: No Respiratory Distress, Decreased Breath Sounds (in bases) Cardiovascular: Regular Rate, Rhythm, No Edema, No Murmur Gastrointestinal: Normal Bowel Sounds, Non Tender, Soft Extremity: Normal Capillary Refill, No Calf Tenderness, No Pedal Edema, Other ( rheumatoid deformities of toes) Neurologic/Psychiatric: Alert, Oriented x3, No Motor/Sensory Deficits, Normal Mood/Affect Skin: Normal Color, Warm/Dry Results Results/Procedures Labs Laboratory Tests 02/18/18 11:45 02/19/18 04:10 Patient resulted labs reviewed. Imaging: Reviewed Imaging Report Assessment/Plan Admission Diagnosis Sepsis Admission Status: Inpatient Order (span 2 midnights) Reason for Inpatient Admission: IV abx and will likely take two or more midnights to stabilize for DC Diagnosis/Problems Diagnosis/Problems (1) Sepsis Status: Acute Assessment & Plan: Febrile with leukocytosis Clinically dx with pneumonia Will get follow up XR in AM Lactic acid normal Start Cefepime Given within timeframe and severe myalgias will start on Tamiflu as well Cultures drawn in ER Qualifiers: Sepsis type: sepsis due to unspecified organism Qualified Codes: A41.9 - Sepsis, unspecified organism (2) Pneumonia Status: Acute Assessment & Plan: Abx as above MAT Protocol Qualifiers: Pneumonia type: due to unspecified organism Laterality: unspecified laterality Lung location: unspecified part of lung Qualified Codes: J18.9 - Pneumonia, unspecified organism (3) Rheumatoid arthritis Status: Chronic Assessment & Plan: On sulfasalazine at baseline Qualifiers: Rheumatoid arthritis location: unspecified site Rheumatoid factor presence : unspecified presence Qualified Codes: M06.9 - Rheumatoid arthritis, unspecified (4) Non-insulin dependent type 2 diabetes mellitus Assessment & Plan: BS 116 SSI (5) Hypomagnesemia Assessment & Plan: Mg 1.0 on arrival Replaced in ER Recheck in AM GREER PATINO MD Feb 16, 2018 15:53
[2018-02-16 16:00] VITALS: BP 144/73
[2018-02-16] MEDS ORDERED: MAGNESIUM 1 GM/D5W 100 ML IVPB IV ONE (16:30)
[2018-02-16 16:48] VITALS: BP 160/95
[2018-02-16] MEDS: inSUlin ASPART (NovoLOG) 1 UNIT/0.01 ML (CHARGE PER UNIT) SC SCH ×2 (17:00→20:44)
[2018-02-16] MEDS ORDERED: FLU QUADRIvalent (5+ YOA) 2018-2019 (AFLURIA) 0.5 ML IM ONE (17:00)
[2018-02-16] MEDS: fentaNYL INJECTION 100 MCG/2 ML AMP IVP PRN ×2 (17:40→20:49)
[2018-02-16] MEDS: RT-ALBUTEROL SULF 2.5 MG/3 ML PRE-MIX VIAL INH SCH ×2 (18:10→21:36)
[2018-02-16] MEDS ORDERED: ONDANSETRON 4 MG/2 ML (SDV) Z0FRAN IV PRN (18:45)
[2018-02-16] MEDS ORDERED: BENZONATATE 100 MG (TESSALON) CAPSULE PO PRN (18:45)
[2018-02-16] MEDS ORDERED: ANTACID SUSP 30 ML UDC (MYLANTA) PO PRN (18:45)
[2018-02-16] MEDS ORDERED: MELATONIN 3 MG TABLET PO PRN (18:45)
[2018-02-16] MEDS ORDERED: MILK OF MAGNESIA 400 MG/5 ML 30 ML UDC PO PRN (18:45)
[2018-02-16] MEDS: ACETAMINOPHEN 325 MG TABLET PO PRN (19:49)
[2018-02-16 19:50] VITALS: BP 126/78
[2018-02-16] MEDS ORDERED: RT-ALBUTEROL SULF 2.5 MG/3 ML PRE-MIX VIAL INH PRN (20:00)
[2018-02-16] MEDS: OSELTAMIVIR 75 MG (TAMIFLU) CAPSULE PO SCH (20:49)
[2018-02-17 00:15] VITALS: BP 119/75
[2018-02-17] MEDS: RT-ALBUTEROL SULF 2.5 MG/3 ML PRE-MIX VIAL INH SCH ×6 (01:37→22:34)
[2018-02-17 04:16] VITALS: BP 130/82
[2018-02-17] MEDS: inSUlin ASPART (NovoLOG) 1 UNIT/0.01 ML (CHARGE PER UNIT) SC SCH ×5 (05:58→21:37)
[2018-02-17 06:01] LABS: BASOPHILS % (AUTO) 0 % (0-10); EOSINOPHILS # (AUTO) 0.2 10^3/uL (0.0-0.3); EOSINOPHILS % (AUTO) 2 % (0-10); HEMATOCRIT 32 % (35-52); HEMOGLOBIN 9.9 G/DL (11.5-16.0); LYMPHOCYTES # (AUTO) 1.8 X 10^3 (1.0-4.0); LYMPHOCYTES % (AUTO) 15 % (12-44); MEAN CORPUSCULAR HEMOGLOBIN 27 PG (25-34); MEAN CORPUSCULAR HGB CONC 31 G/DL (32-36); MEAN CORPUSCULAR VOLUME 86 FL (80-99); MEAN PLATELET VOLUME 9.2 FL (7.4-10.4); MONOCYTES # (AUTO) 1.3 X 10^3 (0.0-1.0); MONOCYTES % (AUTO) 11 % (0-12); NEUTROPHILS # (AUTO) 8.5 X 10^3 (1.8-7.8); NEUTROPHILS % (AUTO) 72 % (42-75); PLATELET COUNT 259 10^3/uL (130-400); RED BLOOD COUNT 3.73 10^6/uL (4.35-5.85); RED CELL DISTRIBUTION WIDTH 16.9 % (10.0-14.5); WHITE BLOOD COUNT 11.9 10^3/uL (4.3-11.0)
[2018-02-17 06:22] LABS: ALANINE AMINOTRANSFERASE 14 U/L (0-55); ALKALINE PHOSPHATASE 75 U/L (40-136); BILIRUBIN,TOTAL 0.3 MG/DL (0.1-1.0); BUN/CREATININE RATIO 12; CALCIUM 9.2 MG/DL (8.5-10.1); CARBON DIOXIDE 25 MMOL/L (21-32); CHLORIDE 105 MMOL/L (98-107); CREATININE SERUM 0.76 MG/DL (0.60-1.30); GFR ESTIMATED > 60; GLUCOSE 165 MG/DL (70-105); MAGNESIUM 1.3 MG/DL (1.8-2.4); POTASSIUM 3.6 MMOL/L (3.6-5.0); SODIUM 140 MMOL/L (135-145); TOTAL PROTEIN 7.2 GM/DL (6.4-8.2)
[2018-02-17 08:00] VITALS: BP 132/82
[2018-02-17] MEDS: fentaNYL INJECTION 100 MCG/2 ML AMP IVP PRN ×3 (08:31→21:25)
[2018-02-17] MEDS: OSELTAMIVIR 75 MG (TAMIFLU) CAPSULE PO SCH ×2 (08:41→21:25)
--- NOTE | 2018-02-17 08:47 | Physical Therapy Evaluation ---
PT Evaluation-General Medical Diagnosis Admission Date Feb 16, 2018 at 14:52 Medical Diagnosis: sepsis & pneumonia Onset Date: Feb 16, 2018 Therapy Diagnosis Therapy Diagnosis: impaired mobility and strength Height/Weight Height (Feet): 5 Height (Inches): 2.00 Weight (Pounds): 209 Weight (Ounces): 1.0 Precautions Precautions/Isolations: Fall Prevention, Standard Precautions Weight Bear Status Right Lower Extremity: Right Weight Bearing/Tolerated Left Lower Extremity: Left Weight Bearing/Tolerated Referral Physician: Sukumar Reason for Referral: Evaluation/Treatment Medical History Pertinent Medical History: COPD, DM, HTN, Neuropathy Current History pt admitted to ER for back pain and cough, treated for sepsis and pneumonia Reviewed History: Yes Social History Home: Single Level Current Living Status: Alone Entry Into Home: Stairs With Railing PT Steps Into Home: 5 Prior/Core FIM Prior Level of Function Functional [place] Measure 0=Not Assessed/NA 4=Minimal Assistance 1=Total Assistance 5=Supervision or Setup 2=Maximal Assistance 6=Modified [place] 3=Moderate Assistance 7=Complete [place] Bed Mobility: 6 Transfers (B,C,W/C) (FIM): 6 Gait: 6 4WW PT Evaluation-Current Subjective pt in bed pre tx, agrees to PT, reports pain 5/10 at rest Pt/Family Goals to be independent at home Objective Patient Orientation: Normal For Age Attachments: Oxygen 2L of O2 nasal canula ROM/Strength ROM Lower Extremities WFL Strength Lower Extremities grossly 3+/5 bilaterally, assessed in supine Neuromuscular (Tone, Coordination, Reflexes) NT Sensory Vision: Functional Hearing: Functional Sensation Right Lower Extremit: Intact Sensation Left Lower Extremity: Intact Transfers Functional [place] Measure 0=Not Assessed/NA 4=Minimal Assistance 1=Total Assistance 5=Supervision or Setup 2=Maximal Assistance 6=Modified [place] 3=Moderate Assistance 7=Complete [place] Transfers (B, C, W/C) (FIM): 3 Scootin Rollin pt unable to tolerate getting to seated at EOB due to pain reported all down her back Treatment supine ex: SAQs, HS, AP, glute sets, QS, x10 Assessment/Needs pt in a lot of pain upon attempting supine<->sit, unable to complete transfer, pt appears motivated and states she will continue to do bed exercises Rehab Potential: Guarded PT Short Term Goals Short Term Goals Time Frame: Feb 24, 2018 Transfers (B,C,W/C) (FIM): 4 Gait (FIM): 2 Distance (FIM): 1=321-45 ft Gait Distance Comment: 50' Gait Level of Assist: 4 Gait Assistive Device: FWW PT Plan Problem List Problem List: Activity Tolerance, Functional Strength, Safety, Balance, Gait, Transfer, Bed Mobility, ROM Treatment/Plan Treatment Plan: Continue Plan of Care Treatment Plan: Bed Mobility, Concurrent Therapy, Education, Functional Activity Ani, Functional Strength, Gait, Safety, Therapeutic Exercise, Transfers Treatment Duration: Feb 24, 2018 Frequency: 6 times per week Estimated Hrs Per Day: .25 hour per day (15-30') Patient and/or Family Agrees t: Yes Safety Risks/Education Patient Education: Transfer Techniques, Correct Positioning, Safety Issues Teaching Recipient: Patient Teaching Methods: Demonstration, Discussion Response to Teaching: Reinforcement Needed Discharge Recommendations Plan Pt will perform bed mobility, transfer training, gait training, functional strengthening, balance training, endurance training, and education to be independent at home. Therapy D/C Recommendations: Home w/ Family Support Time/GCodes Time In: 817 Time Out: 08 Total Billed Treatment Time: 17 Total Billed Treatment 1 visit EVM 17' LACEY KHANNA PT Feb 17, 2018 08:47
--- NOTE | 2018-02-17 09:41 | Progress Note-Hospitalist ---
Subjective HPI/CC On Admission Date Seen by Provider: Feb 17, 2018 Time Seen by Provider: 09:37 Pt is a 62yoCF with a PMH of RA, NIDDMII, HTN, and chronic hypomagnesemia who presented to the ER with back pain and cough. She states her symptoms started 2 days ago with body aches and back pain. She also developed a cough without sputum production. She states any movement hurts her back and her back pain got so severe that she was urinating on herself because she could not ambulate to the bathroom. She also had chills but did not check her temperature at home. She denies any nausea, vomiting,constipation, or diarrhea. She has not had her flu shot yet. She does not have any sick contacts. Subjective/Events-last exam Pt reports still having back pain and mobility with PT was limited. Daughter at bedside with concerns about hypomagnesemia. Focused Exam Lactate Level 02/16/18 11:18: Lactic Acid Level 1.29 Objective Exam Vital Signs Vital Signs Date Time Temp Pulse Resp B/P (MAP) Pulse Ox O2 Delivery O2 Flow Rate FiO2 02/19/18 08:26 97.5 70 20 106/68 (81) 95 Nasal Cannula 2.00 02/16/18 16:48 28 Capillary Refill : Less Than 3 Seconds General Appearance: No Apparent Distress Respiratory: Lungs Clear, No Respiratory Distress Cardiovascular: Regular Rate, Rhythm, No Murmur Gastrointestinal: Normal Bowel Sounds, Non Tender, Soft Neurologic/Psychiatric: Alert, Oriented x3 Results/Procedures Lab Laboratory Tests 02/18/18 11:45 02/19/18 04:10 Patient resulted labs reviewed. Imaging: Reviewed Imaging Report Assessment/Plan Assessment and Plan Assess & Plan/Chief Complaint CAP Diagnosis/Problems Diagnosis/Problems (1) Sepsis Status: Acute Assessment & Plan: Now afebrile Leukocytosis trending down Clinically dx with pneumonia Lactic acid normal Continue Cefepime Continue Tamiflu as well Cultures drawn in ER- pending Qualifiers: Sepsis type: sepsis due to unspecified organism Qualified Codes: A41.9 - Sepsis, unspecified organism (2) Pneumonia Status: Acute Assessment & Plan: Abx as above MAT Protocol Qualifiers: Pneumonia type: due to unspecified organism Laterality: unspecified laterality Lung location: unspecified part of lung Qualified Codes: J18.9 - Pneumonia, unspecified organism (3) Rheumatoid arthritis Status: Chronic Assessment & Plan: On sulfasalazine at baseline PT/OT consulted Qualifiers: Rheumatoid arthritis location: unspecified site Rheumatoid factor presence : unspecified presence Qualified Codes: M06.9 - Rheumatoid arthritis, unspecified (4) Hypomagnesemia Assessment & Plan: Mg 1.3 today Replace again today (5) Non-insulin dependent type 2 diabetes mellitus Assessment & Plan: BS 116 SSI Clinical Quality Measures DVT/VTE Risk/Contraindication: Risk Factor Score Per Nursin RFS Level Per Nursing on Admit: 4+=Very High GREER SMITH MD Feb 17, 2018 09:41
[2018-02-17] MEDS: CEFEPIME INJECTION 2,000 MG in NS (IVPB) 50 ML IV SCH ×2 (10:12→21:24)
--- NOTE | 2018-02-17 10:18 | Diagnostic Imaging Report ---
Portable erect AP chest at 953 hours. INDICATION: Fever, sepsis. FINDINGS: The heart size is within normal limits and stable when compared to 02/16/18. The elevated right hemidiaphragm seen on the prior study is again evident and no different. The mild atelectasis/infiltrate in the lung bases seen on the CTA chest exam of 02/16/2018 is difficult to appreciate on this study. The lungs were visualized are generally clear. The mediastinum is not widened. The osseous structures are intact. IMPRESSION: There is no evidence for active disease. Dictated by: Dictated on workstation # [id number]
[2018-02-17] MEDS: MAGNESIUM 1 GM/100 ML IVPB 100 ML IV SCH ×2 (10:40→11:39)
[2018-02-17 12:00] VITALS: BP 126/73
--- NOTE | 2018-02-17 13:20 | Occupational Therapy Eval ---
OT Evaluation-General/PLF Medical Diagnosis Admission Date Feb 16, 2018 at 14:52 Medical Diagnosis: sepsis & pneumonia Onset Date: Feb 16, 2018 Therapy Diagnosis Therapy Diagnosis: decr self care, decr funct mob, weakness, decr act alice Height/Weight Height (Feet): 5 Height (Inches): 2.00 Weight (Pounds): 209 Weight (Ounces): 1.0 Precautions Precautions/Isolations: Fall Prevention, Standard Precautions Safety Interventions: Bed Exit Alarm Referral Physician: Sukumar Referral Reason: Evaluation/Treatment Medical History Pertinent Medical History: COPD, DM, HTN, Neuropathy, Rheumatoid Arthritis Additional Medical History Neuropathy in hands, per pt report. DJD. Chronic UTI. Anxiety, depression. Chronic hypomagnesemia. Bilat CTS, per pt report. Current History Admitted through ED with back pain for two days and cough. Dx with pneumonia and sepsis Social History Home: Single Level (mobile home) Current Living Status: Alone Entry Into Home: Stairs With Railing Steps Into Home: 5 ADL-Prior Level of Function ADL PLOF Comments Pt reported that she was previously able to manage her basic self care needs but has moved in with her daughter to have help with IADLs. She also indicated that arthritic changes in her hands have made ADLs more difficult. 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 DME/Equipment: Bath Bench (transfer tub bench) OT Current Status Subjective Pt seen in room, up in bed, agreeable to OT. Pain rated 8/10 and she reported spasms in her back. Appearance Alert, cooperative, tearful at times Mental Status/Objective Patient Orientation: Person, Place, Time, Situation Attachments: Nguyễn Catheter, IV, Oxygen Current Glasses/Contacts: Yes Hand Dominance: Right Upper Extremity ROM Grossly WFL but not full range at shoulders, limited due to arthritis per pt report Upper Extremity Strength Grossly 3+/5 bilat UEs ADL-Treatment ADL-Current Pt reported that she has been able to feed herself. She needed mod assist to attempt to sit EOB this morning and was limited by back pain. She has not been up to BSC. Functional [place] Measure 0=Not Assessed/NA 4=Minimal Assistance 1=Total Assistance 5=Supervision or Setup 2=Maximal Assistance 6=Modified [place] 3=Moderate Assistance 7=Complete IndependenceIRFPAI Quality Coding Scale 6 Independent with activity with or without an assistive device 5 Patient requires set up or clean up by helper. Patient completes activity by themselves 4 Supervision or touching assist (CGA). [place] provide cues , steadying assist 3 The helper provides less than half the effort to complete the activity 2 The helper provides more than half the effort to complete the activity 1 Dependent. The helper does all the effort to complete an activity 7 Patient refused to complete or attempt activity 9 The patient did not perform the activity before the current illness or injury 88 Not attempted due to Medical conditions or safety concerns Education OT Patient Education: Purpose of tx/functional activities, Rehab process Teaching Recipient: Patient Teaching Methods: Discussion Response to Teaching: Verbalize Understanding OT Reimbursement Spec Goals Reimbursement Spec Goals Time Frame: Feb 24, 2018 Eating (FIM): 6 Grooming(FIM): 5 Bathing(FIM): 5 Upper Body Dressing(FIM): 5 Lower Body Dressing(FIM): 5 Toileting(FIM): 5 Toilet/Commode Transfer(FIM): 5 Shower Transfer(FIM): 5 Additional Goals: 1-Demonstrate ADL Tasks, 2-Verbalize Understanding, 3- ImproveStrength/Ani 1=Demonstrate adherence to instructed precautions during ADL tasks. 2=Patient will verbalize/demonstrate understanding of assistive devices/ modifications for ADL. 3=Patient will improve strength/tolerance for activity to enable patient to perform ADL's. OT Education/Plan Problem List/Assessment Assessment: Decreased Activ Tolerance, Decreased UE Strength, Dependent Transfers, Impaired Bed Mobility, Impaired Self-Care Skills Pt would benefit from skilled oT to increase her independence in basic self care to allow her to safely return home Discharge Recommendations Plan/Recommendations: Continue POC Treatment Plan/Plan of Care Treatment,Training & Education: Yes Patient would benefit from OT for education, treatment and training to promote independence in ADL's, mobility, safety and/or upper extremity function for ADL' s. Plan of Care: ADL Retraining, Functional Mobility, UE Funct Exercise/Act, UE Neuromus Re-Ed/Coord, OTHER (energy conservation education) Treatment Duration: Feb 24, 2018 Frequency: 5 times per week Estimated Hrs Per Day: .5 hour per day Agreement: Yes Rehab Potential: Fair Time/GCodes Start Time: 10:20 Stop Time: 10:37 Total Time Billed (hr/min): 17 Billed Treatment Time visit, 17 minutes evaluation moderate intensity ZAIN BOLTON OT Feb 17, 2018 13:20
[2018-02-17] MEDS: BACLOFEN 10 MG (LIORESAL) TAB PO SCH ×2 (13:30→21:25)
[2018-02-17 15:31] VITALS: BP 127/63
[2018-02-17] MEDS: ACETAMINOPHEN 325 MG TABLET PO PRN (17:42)
[2018-02-17 19:39] VITALS: BP 106/53
[2018-02-18] VITALS (7 sets, daily range): BP systolic 111–140; BP diastolic 59–83
[2018-02-18] MEDS: RT-ALBUTEROL SULF 2.5 MG/3 ML PRE-MIX VIAL INH SCH ×6 (02:20→22:36)
[2018-02-18] MEDS: inSUlin ASPART (NovoLOG) 1 UNIT/0.01 ML (CHARGE PER UNIT) SC SCH ×4 (05:54→20:49)
[2018-02-18] MEDS: BACLOFEN 10 MG (LIORESAL) TAB PO SCH ×3 (08:51→20:23)
[2018-02-18] MEDS: OSELTAMIVIR 75 MG (TAMIFLU) CAPSULE PO SCH ×2 (08:51→20:23)
[2018-02-18] MEDS: CEFEPIME INJECTION 2,000 MG in NS (IVPB) 50 ML IV SCH ×2 (08:51→20:23)
--- NOTE | 2018-02-18 09:42 | Physical Therapy Daily Note ---
PT Daily Note-Current Subjective Pt laying Supine in bed. Pt reports feeling like her Magnesium is off, pt stated had already told Nurse. Pt agrees to Supine Ex. Mental Status Patient Orientation: Person, Place, Situation Attachments: Oxygen Transfers Functional [place] Measure 0=Not Assessed/NA 4=Minimal Assistance 1=Total Assistance 5=Supervision or Setup 2=Maximal Assistance 6=Modified [place] 3=Moderate Assistance 7=Complete IndependenceIRFPAI Quality Coding Scale 6 Independent with activity with or without an assistive device 5 Patient requires set up or clean up by helper. Patient completes activity by themselves 4 Supervision or touching assist (CGA). [place] provide cues , steadying assist 3 The helper provides less than half the effort to complete the activity 2 The helper provides more than half the effort to complete the activity 1 Dependent. The helper does all the effort to complete an activity 7 Patient refused to complete or attempt activity 9 The patient did not perform the activity before the current illness or injury 88 Not attempted due to Medical conditions or safety concerns Weight Bearing Right Lower Extremity: Right Weight Bearing/Tolerated Left Lower Extremity: Left Weight Bearing/Tolerated Exercises Supine Ex: Ankle pumps, Quad Set, Glut sets, Heel Slides, Straight leg raise, Hip abd/add Supine Reps: 15 Treatments Pt completes Supine Ex in bed. Pt wants to rest Supine in bed. BUSINESS REPRESENTATIVE encourages pt to sit up as much as possible to promote better breathing. Pt has all needs met. Assessment Current Status: Good Progress Pt feels tired and fatigues some during Ex. PT Short Term Goals Short Term Goals Time Frame: Feb 24, 2018 Gait (FIM): 2 Distance (FIM): 5=292-61 ft Gait Distance Comment: 50' Gait Level of Assist: 4 Gait Assistive Device: FWW PT Plan Problem List Problem List: Activity Tolerance, Functional Strength, Safety, Balance, Gait, Transfer, Bed Mobility Treatment/Plan Treatment Plan: Continue Plan of Care Treatment Plan: Bed Mobility, Concurrent Therapy, Education, Functional Activity Ani, Functional Strength, Gait, Safety, Therapeutic Exercise, Transfers Treatment Duration: Feb 24, 2018 Frequency: 6 times per week Estimated Hrs Per Day: .25 hour per day (15-30') Patient and/or Family Agrees t: Yes Safety Risks/Education Patient Education: Gait Training, Transfer Techniques, Correct Positioning, Safety Issues Teaching Recipient: Patient Teaching Methods: Discussion Response to Teaching: Verbalize Understanding Time/GCodes Time In: 845 Time Out: 903 Total Billed Treatment Time: 18 Total Billed Treatment 1, EX (18m) G Codes Necessary: NICOLE Warren PTA Feb 18, 2018 09:42
--- NOTE | 2018-02-18 10:10 | Progress Note-Hospitalist ---
Subjective HPI/CC On Admission Date Seen by Provider: Feb 18, 2018 Time Seen by Provider: 10:07 Pt is a 62yoCF with a PMH of RA, NIDDMII, HTN, and chronic hypomagnesemia who presented to the ER with back pain and cough. She states her symptoms started 2 days ago with body aches and back pain. She also developed a cough without sputum production. She states any movement hurts her back and her back pain got so severe that she was urinating on herself because she could not ambulate to the bathroom. She also had chills but did not check her temperature at home. She denies any nausea, vomiting,constipation, or diarrhea. She has not had her flu shot yet. She does not have any sick contacts. Subjective/Events-last exam Pt reports feeling better today. Sitting up in bed and back pain improving but still there. Feels like could have a BM and would like to get out of bed for this. Tolerating diet as well. Focused Exam Lactate Level 02/16/18 11:18: Lactic Acid Level 1.29 Objective Exam Vital Signs Vital Signs Date Time Temp Pulse Resp B/P (MAP) Pulse Ox O2 Delivery O2 Flow Rate FiO2 02/18/18 08:00 Nasal Cannula 2.00 02/18/18 08:00 96.7 72 16 136/77 (96) 93 02/16/18 16:48 28 Capillary Refill : Less Than 3 Seconds General Appearance: No Apparent Distress, WD/WN Respiratory: Lungs Clear, No Respiratory Distress Cardiovascular: Regular Rate, Rhythm, No Murmur Extremity: No Calf Tenderness, No Pedal Edema Neurologic/Psychiatric: Alert, Oriented x3 Results/Procedures Lab Patient resulted labs reviewed. Imaging: Reviewed Imaging Report Assessment/Plan Assessment and Plan Assess & Plan/Chief Complaint CAP Diagnosis/Problems Diagnosis/Problems (1) Sepsis Status: Acute Assessment & Plan: Now afebrile Labs pending from today Clinically dx with pneumonia Continue Cefepime Continue Tamiflu as well Cultures NGTD Qualifiers: Sepsis type: sepsis due to unspecified organism Qualified Codes: A41.9 - Sepsis, unspecified organism (2) Pneumonia Status: Acute Assessment & Plan: Abx as above MAT Protocol Qualifiers: Pneumonia type: due to unspecified organism Laterality: unspecified laterality Lung location: unspecified part of lung Qualified Codes: J18.9 - Pneumonia, unspecified organism (3) Rheumatoid arthritis Status: Chronic Assessment & Plan: On sulfasalazine at baseline PT/OT consulted Qualifiers: Rheumatoid arthritis location: unspecified site Rheumatoid factor presence : unspecified presence Qualified Codes: M06.9 - Rheumatoid arthritis, unspecified (4) Hypomagnesemia Assessment & Plan: Mg pending today Replace as needed (5) Non-insulin dependent type 2 diabetes mellitus Assessment & Plan: Relatively well controlled Continue SSI Clinical Quality Measures DVT/VTE Risk/Contraindication: Risk Factor Score Per Nursin RFS Level Per Nursing on Admit: 4+=Very High GREER SMITH MD Feb 18, 2018 10:10 am
[2018-02-18] MEDS ORDERED: fluCOnazole (DIFLUCAN) 100 MG TAB PO NR (10:45)
[2018-02-18 12:16] LABS: BASOPHILS # (AUTO) 0.1 10^3/uL (0.0-0.1); BASOPHILS % (AUTO) 1 % (0-10); EOSINOPHILS # (AUTO) 0.3 10^3/uL (0.0-0.3); EOSINOPHILS % (AUTO) 3 % (0-10); HEMATOCRIT 32 % (35-52); LYMPHOCYTES # (AUTO) 1.5 X 10^3 (1.0-4.0); LYMPHOCYTES % (AUTO) 17 % (12-44); MEAN CORPUSCULAR HEMOGLOBIN 27 PG (25-34); MEAN CORPUSCULAR HGB CONC 32 G/DL (32-36); MEAN CORPUSCULAR VOLUME 87 FL (80-99); MEAN PLATELET VOLUME 9.4 FL (7.4-10.4); MONOCYTES # (AUTO) 0.6 X 10^3 (0.0-1.0); MONOCYTES % (AUTO) 7 % (0-12); NEUTROPHILS # (AUTO) 6.5 X 10^3 (1.8-7.8); NEUTROPHILS % (AUTO) 72 % (42-75); PLATELET COUNT 271 10^3/uL (130-400); RED BLOOD COUNT 3.65 10^6/uL (4.35-5.85); RED CELL DISTRIBUTION WIDTH 16.7 % (10.0-14.5)
[2018-02-18 12:33] LABS: BUN/CREATININE RATIO 16; CALCIUM 9.5 MG/DL (8.5-10.1); CARBON DIOXIDE 23 MMOL/L (21-32); CHLORIDE 104 MMOL/L (98-107); CREATININE SERUM 0.76 MG/DL (0.60-1.30); GFR ESTIMATED > 60; GLUCOSE 196 MG/DL (70-105); MAGNESIUM 1.5 MG/DL (1.8-2.4); POTASSIUM 3.5 MMOL/L (3.6-5.0); SODIUM 140 MMOL/L (135-145)
[2018-02-18] MEDS ORDERED: KCL 20 MEQ TAB (K-DUR) PO NR (14:15)
[2018-02-18] MEDS: MAGNESIUM 1 GM/100 ML IVPB 100 ML IV SCH ×2 (14:47→15:46)
[2018-02-18] MEDS: fentaNYL INJECTION 100 MCG/2 ML AMP IVP PRN ×3 (16:04→23:25)
[2018-02-19] MEDS: RT-ALBUTEROL SULF 2.5 MG/3 ML PRE-MIX VIAL INH SCH ×5 (01:37→19:20)
[2018-02-19 03:35] VITALS: BP 145/66
[2018-02-19] MEDS: fentaNYL INJECTION 100 MCG/2 ML AMP IVP PRN ×2 (03:42→23:58)
[2018-02-19] MEDS: ACETAMINOPHEN 325 MG TABLET PO PRN (03:54)
[2018-02-19 04:52] LABS: BASOPHILS # (AUTO) 0.1 10^3/uL (0.0-0.1); BASOPHILS % (AUTO) 1 % (0-10); EOSINOPHILS # (AUTO) 0.5 10^3/uL (0.0-0.3); EOSINOPHILS % (AUTO) 4 % (0-10); HEMATOCRIT 32 % (35-52); HEMOGLOBIN 9.9 G/DL (11.5-16.0); LYMPHOCYTES # (AUTO) 2.5 X 10^3 (1.0-4.0); LYMPHOCYTES % (AUTO) 24 % (12-44); MEAN CORPUSCULAR HEMOGLOBIN 27 PG (25-34); MEAN CORPUSCULAR HGB CONC 31 G/DL (32-36); MEAN CORPUSCULAR VOLUME 86 FL (80-99); MEAN PLATELET VOLUME 9.2 FL (7.4-10.4); MONOCYTES % (AUTO) 10 % (0-12); NEUTROPHILS # (AUTO) 6.5 X 10^3 (1.8-7.8); NEUTROPHILS % (AUTO) 62 % (42-75); PLATELET COUNT 306 10^3/uL (130-400); RED BLOOD COUNT 3.73 10^6/uL (4.35-5.85); RED CELL DISTRIBUTION WIDTH 16.6 % (10.0-14.5); WHITE BLOOD COUNT 10.6 10^3/uL (4.3-11.0)
[2018-02-19 05:12] LABS: BUN/CREATININE RATIO 15; CALCIUM 10.2 MG/DL (8.5-10.1); CARBON DIOXIDE 27 MMOL/L (21-32); CHLORIDE 102 MMOL/L (98-107); CREATININE SERUM 0.78 MG/DL (0.60-1.30); GFR ESTIMATED > 60; GLUCOSE 114 MG/DL (70-105); MAGNESIUM 1.8 MG/DL (1.8-2.4); SODIUM 141 MMOL/L (135-145)
[2018-02-19] MEDS: inSUlin ASPART (NovoLOG) 1 UNIT/0.01 ML (CHARGE PER UNIT) SC SCH ×4 (05:37→21:22)
[2018-02-19 08:26] VITALS: BP 106/68
[2018-02-19] MEDS: BACLOFEN 10 MG (LIORESAL) TAB PO SCH ×3 (08:53→21:23)
[2018-02-19] MEDS: CEFEPIME INJECTION 2,000 MG in NS (IVPB) 50 ML IV SCH ×2 (08:53→21:22)
[2018-02-19] MEDS: OSELTAMIVIR 75 MG (TAMIFLU) CAPSULE PO SCH ×2 (08:53→21:24)
[2018-02-19] MEDS: fluCOnazole (DIFLUCAN) 100 MG TAB PO SCH (08:53)
--- NOTE | 2018-02-19 08:58 | Progress Note-Hospitalist ---
Subjective HPI/CC On Admission Date Seen by Provider: Feb 19, 2018 Time Seen by Provider: 08:53 Pt is a 62yoCF with a PMH of RA, NIDDMII, HTN, and chronic hypomagnesemia who presented to the ER with back pain and cough. She states her symptoms started 2 days ago with body aches and back pain. She also developed a cough without sputum production. She states any movement hurts her back and her back pain got so severe that she was urinating on herself because she could not ambulate to the bathroom. She also had chills but did not check her temperature at home. She denies any nausea, vomiting,constipation, or diarrhea. She has not had her flu shot yet. She does not have any sick contacts. Subjective/Events-last exam Pt reports feeling better today but is tearful during exam at times. Would like psych meds restarted. Eating well. Sitting up in chair. Nguyễn out. Focused Exam Lactate Level 02/16/18 11:18: Lactic Acid Level 1.29 Objective Exam Vital Signs Vital Signs Date Time Temp Pulse Resp B/P (MAP) Pulse Ox O2 Delivery O2 Flow Rate FiO2 02/19/18 08:26 97.5 70 20 106/68 (81) 95 Nasal Cannula 2.00 02/16/18 16:48 28 Capillary Refill : Less Than 3 Seconds General Appearance: No Apparent Distress, WD/WN Respiratory: Lungs Clear, No Respiratory Distress Cardiovascular: Regular Rate, Rhythm, No Murmur Gastrointestinal: Normal Bowel Sounds, Non Tender, Soft Extremity: No Calf Tenderness, No Pedal Edema Neurologic/Psychiatric: Alert, Oriented x3, Other (occasionally tearful) Results/Procedures Lab Laboratory Tests 02/18/18 11:45 02/19/18 04:10 Patient resulted labs reviewed. Assessment/Plan Assessment and Plan Assess & Plan/Chief Complaint CAP Diagnosis/Problems Diagnosis/Problems (1) Sepsis Status: Acute Assessment & Plan: Remains afebrile Leukocytosis resolved Clinically dx with pneumonia Continue Cefepime due to pcn allergy Continue Tamiflu as well Cultures NGTD Qualifiers: Sepsis type: sepsis due to unspecified organism Qualified Codes: A41.9 - Sepsis, unspecified organism (2) Pneumonia Status: Acute Assessment & Plan: Abx as above MAT Protocol Qualifiers: Pneumonia type: due to unspecified organism Laterality: unspecified laterality Lung location: unspecified part of lung Qualified Codes: J18.9 - Pneumonia, unspecified organism (3) Rheumatoid arthritis Status: Chronic Assessment & Plan: On sulfasalazine at baseline PT/OT consulted Qualifiers: Rheumatoid arthritis location: unspecified site Rheumatoid factor presence : unspecified presence Qualified Codes: M06.9 - Rheumatoid arthritis, unspecified (4) Hypomagnesemia Assessment & Plan: Resolved Trend (5) Non-insulin dependent type 2 diabetes mellitus Assessment & Plan: Relatively well controlled Continue SSI (6) Depression Status: Chronic Assessment & Plan: Resume home meds Qualifiers: Depression Type: major depressive disorder Major depression recurrence: unspecified whether recurrent Active/Remission status: remission status unspecified Qualified Codes: F32.9 - Major depressive disorder, single episode , unspecified (7) GERD (gastroesophageal reflux disease) Status: Chronic Assessment & Plan: Resume home omeprazole Qualifiers: Esophagitis presence: esophagitis presence not specified Qualified Codes: K21.9 - Gastro-esophageal reflux disease without esophagitis Clinical Quality Measures DVT/VTE Risk/Contraindication: Risk Factor Score Per Nursin RFS Level Per Nursing on Admit: 4+=Very High GREER SMITH MD Feb 19, 2018 08:58
[2018-02-19] MEDS ORDERED: NON-FORMULARY MEDICATION 1 EA EA (Buspirone HCl 10 MG) PO SCH (09:00)
[2018-02-19] MEDS ORDERED: OMEPRAZOLE 20 MG (PriLOSEC) CAP NON-FORMULARY PO SCH (09:00)
[2018-02-19] MEDS ORDERED: NON-FORMULARY MEDICATION 1 EA EA (Venlafaxine HCl (Venlafaxine HCl ER) 150 MG) PO SCH (09:00)
[2018-02-19] MEDS: busPIRone 10 MG (BUSPAR) TAB PO SCH ×2 (09:28→21:25)
[2018-02-19] MEDS: PANTOPRAZOLE 20 MG TABLET (PROTONIX) PO SCH (09:28)
[2018-02-19] MEDS: ENOXAPARIN 40 MG/0.4 ML (LOVENOX) SYR SC SCH (09:28)
[2018-02-19] MEDS: VENlafaxine XR 75 MG (EFFEXOR XR) CAP PO SCH (09:28)
[2018-02-19 10:38] VITALS: BP 106/68
[2018-02-19 12:00] VITALS: BP 112/72
[2018-02-19 15:29] VITALS: BP 129/60
[2018-02-19] MEDS: MAGNESIUM OXIDE (MAG-OX)400 MG TAB PO SCH (16:31)
[2018-02-19 19:53] VITALS: BP 115/73
[2018-02-19] MEDS ORDERED: MAGNESIUM CHLORIDE 64 MG PO SCH (21:00)
[2018-02-19] MEDS ORDERED: LEVOCETIRIZINE 5 MG TAB (XYZAL) NON-FORMULARY PO SCH (21:00)
[2018-02-19] MEDS: traZODone 150 MG (DESYREL) TABLET PO SCH (21:23)
[2018-02-19] MEDS: LORATADINE (CLARITIN) 10 MG TAB PO SCH (21:23)
[2018-02-19] MEDS: MONTELUKAST 10 MG (SINGULAIR) TAB PO SCH (21:23)
[2018-02-19] MEDS: ROSUVASTATIN 20 MG (CRESTOR) TABLET PO SCH (21:40)
[2018-02-20 00:44] VITALS: BP 169/77
[2018-02-20 04:07] VITALS: BP 135/66
[2018-02-20 05:02] LABS: BASOPHILS % (AUTO) 0 % (0-10); EOSINOPHILS # (AUTO) 0.5 10^3/uL (0.0-0.3); EOSINOPHILS % (AUTO) 5 % (0-10); HEMATOCRIT 31 % (35-52); LYMPHOCYTES # (AUTO) 2.2 X 10^3 (1.0-4.0); LYMPHOCYTES % (AUTO) 23 % (12-44); MEAN CORPUSCULAR HEMOGLOBIN 27 PG (25-34); MEAN CORPUSCULAR HGB CONC 32 G/DL (32-36); MEAN CORPUSCULAR VOLUME 85 FL (80-99); MONOCYTES # (AUTO) 0.9 X 10^3 (0.0-1.0); MONOCYTES % (AUTO) 10 % (0-12); NEUTROPHILS # (AUTO) 5.7 X 10^3 (1.8-7.8); NEUTROPHILS % (AUTO) 62 % (42-75); PLATELET COUNT 285 10^3/uL (130-400); RED BLOOD COUNT 3.65 10^6/uL (4.35-5.85); WHITE BLOOD COUNT 9.4 10^3/uL (4.3-11.0)
[2018-02-20 05:21] LABS: BUN/CREATININE RATIO 21; CALCIUM 10.6 MG/DL (8.5-10.1); CARBON DIOXIDE 27 MMOL/L (21-32); CHLORIDE 102 MMOL/L (98-107); CREATININE SERUM 0.78 MG/DL (0.60-1.30); GFR ESTIMATED > 60; GLUCOSE 104 MG/DL (70-105); MAGNESIUM 1.4 MG/DL (1.8-2.4); POTASSIUM 4.6 MMOL/L (3.6-5.0); SODIUM 141 MMOL/L (135-145)
[2018-02-20] MEDS: inSUlin ASPART (NovoLOG) 1 UNIT/0.01 ML (CHARGE PER UNIT) SC SCH ×4 (06:09→21:16)
[2018-02-20] MEDS: VENlafaxine XR 75 MG (EFFEXOR XR) CAP PO SCH (06:33)
[2018-02-20] MEDS: PANTOPRAZOLE 20 MG TABLET (PROTONIX) PO SCH (06:34)
[2018-02-20] MEDS: MAGNESIUM OXIDE (MAG-OX)400 MG TAB PO SCH ×2 (06:34→16:51)
[2018-02-20] MEDS: RT-ALBUTEROL SULF 2.5 MG/3 ML PRE-MIX VIAL INH SCH ×4 (06:41→18:23)
[2018-02-20 07:29] VITALS: BP 119/56
[2018-02-20] MEDS: BACLOFEN 10 MG (LIORESAL) TAB PO SCH ×3 (08:42→21:15)
[2018-02-20] MEDS: OSELTAMIVIR 75 MG (TAMIFLU) CAPSULE PO SCH ×2 (08:42→21:15)
[2018-02-20] MEDS: fluCOnazole (DIFLUCAN) 100 MG TAB PO SCH (08:43)
[2018-02-20] MEDS: CEFEPIME INJECTION 2,000 MG in NS (IVPB) 50 ML IV SCH (08:43)
[2018-02-20] MEDS: ENOXAPARIN 40 MG/0.4 ML (LOVENOX) SYR SC SCH (08:43)
[2018-02-20] MEDS: busPIRone 10 MG (BUSPAR) TAB PO SCH ×2 (08:43→21:15)
[2018-02-20] MEDS ORDERED: BACLOFEN 10 MG (LIORESAL) TAB PO PRN (11:45)
--- NOTE | 2018-02-20 11:57 | Physical Therapy Daily Note ---
PT Daily Note-Current Subjective Pt. states she feels she can walk farther than she did last time she attempted to walk. [place]. "Now I have to lean over like this to go very far" Pain Numeric Pain Scale: 3 Location: Medial Location Body Site: Back Pain Description: Ache Appearance flexed at trunk during gait, heavy lean on FWW on forearms part of the time Mental Status Patient Orientation: Normal For Age Attachments: Oxygen (2L) Transfers Functional [place] Measure 0=Not Assessed/NA 4=Minimal Assistance 1=Total Assistance 5=Supervision or Setup 2=Maximal Assistance 6=Modified [place] 3=Moderate Assistance 7=Complete IndependenceIRFPAI Quality Coding Scale 6 Independent with activity with or without an assistive device 5 Patient requires set up or clean up by helper. Patient completes activity by themselves 4 Supervision or touching assist (CGA). [place] provide cues , steadying assist 3 The helper provides less than half the effort to complete the activity 2 The helper provides more than half the effort to complete the activity 1 Dependent. The helper does all the effort to complete an activity 7 Patient refused to complete or attempt activity 9 The patient did not perform the activity before the current illness or injury 88 Not attempted due to Medical conditions or safety concerns Sit to/from Stand: 5 Weight Bearing Right Lower Extremity: Right Weight Bearing/Tolerated Left Lower Extremity: Left Weight Bearing/Tolerated Gait Training Distance (FIM): 6=947-53 ft (125x1) Gait Assistive Device: FWW low, flexed at trunk, heavy weight bearing either on hands or on forearms on to FWW, states back pain increases with back extension Exercises Seated Therapy Exercises: Ankle pumps, Sit to stand, Long arc quads, Hip flexion, Hip abd/add Seated Reps: 10 Treatments up in recliner after with masterson and phone at hand Assessment Current Status: Good Progress PT Short Term Goals Short Term Goals Time Frame: Feb 24, 2018 Gait (FIM): 2 Distance (FIM): 9=031-82 ft Gait Distance Comment: 50' Gait Level of Assist: 4 Gait Assistive Device: FWW PT Plan Treatment/Plan Treatment Plan: Continue Plan of Care Treatment Plan: Bed Mobility, Concurrent Therapy, Education, Functional Activity Ani, Functional Strength, Gait, Safety, Therapeutic Exercise, Transfers Treatment Duration: Feb 24, 2018 Frequency: 6 times per week Estimated Hrs Per Day: .25 hour per day (15-30') Patient and/or Family Agrees t: Yes Safety Risks/Education Patient Education: Gait Training, Transfer Techniques, Correct Positioning, Disease Process, Safety Issues Teaching Recipient: Patient Teaching Methods: Demonstration, Discussion Response to Teaching: Verbalize Understanding, Return Demonstration, Reinforcement Needed Time/GCodes Time In: 1130 Time Out: 1150 Total Billed Treatment Time: 20 Total Billed Treatment 1,GT20m G Codes Necessary: No SCARLETT LINDER DRYER OPERATOR Feb 20, 2018 11:57
[2018-02-20 12:07] VITALS: BP 103/57
--- NOTE | 2018-02-20 12:50 | Progress Note-Hospitalist ---
Progress Note Progress Notes/Assess & Plan Date Seen 02/20/18 Time Seen by Provider: 12:42 Assessment & Plan The patient is a 62-year-old white female who was admitted 3 days ago after presenting to the emergency room with fever and general inability to care for herself. Her temperature at presentation was 100.8. Her white blood count in the emergency room was 17,200. It has now fallen to 9400. No absolutely clear source of infection was identified. Flu antibodies were negative. Symptoms suggested a viral illness. Chest x-ray has remained without infiltrate. There is an elevation of the right hemidiaphragm. She did not have prior knowledge of this. She states that she has improved considerably. She is up in the chair when I entered the room. She did not previously require oxygen. Her SaO2 is on 2 L have run from 93-96 percent. Physical exam: We had a pleasant white female in no distress. Initial attempt at auscultation revealed loud rhonchi. After being asked to cough this cleared greatly. CV was regular without murmur. Extremities showed gross abnormality of the left wrist. (Previous diagnosis of rheumatoid arthritis) Impression: Febrile illness suggesting viral. 2.SIRS. 3.elevated right hemidiaphragm. 4.history of rheumatoid arthritis. Plan: Encourage ambulation. 2.DC antibiotics. 3.home O2 evaluation. ДМИТРИЙ PHILLIPS MD Feb 20, 2018 12:50
--- NOTE | 2018-02-20 13:36 | Occupational Ther Daily Note ---
OT Current Status-Daily Note Subjective Pt alert, sitting in recliner. Pt agrees to therapy. Pt c/o muscle spasms, nrsg brought medication. Mental Status/Objective Patient Orientation: Person, Place, Time, Situation Functional [place] Measure 0=Not Assessed/NA 4=Minimal Assistance 1=Total Assistance 5=Supervision or Setup 2=Maximal Assistance 6=Modified [place] 3=Moderate Assistance 7=Complete [place] ADL-Treatment Grooming (FIM): 6 (Initially uses FWW and counter to complete grooming then pushes FWW away and leans on counter to complete rest of grooming.) Toileting (FIM): 6 (Using grabbars and FWW to complete toileting.) Transfers (B, C, W/C) (FIM): 6 (Using FWW to complete transfer. Pt able to manipulate O2 tubing while ambulating.) Toilet/Commode Transfer (FIM): 6 (Using grabbars and FWW to complete transfer.) Pt does need vc to keep FWW with her until she sits down. After therapy, pt sitting in recliner with call light/phone in reach. All needs met in room. OT Short Term Goals Short Term Goals 1=Demonstrate adherence to instructed precautions during ADL tasks. 2=Patient will verbalize/demonstrate understanding of assistive devices/ modifications for ADL. 3=Patient will improve strength/tolerance for activity to enable patient to perform ADL's. OT Commercial Loan Collection Officer Goals Skilled Nursing Goals Time Frame: Feb 24, 2018 Eating (FIM): 6 Grooming(FIM): 5 Bathing(FIM): 5 Upper Body Dressing(FIM): 5 Lower Body Dressing(FIM): 5 Toileting(FIM): 5 Toilet/Commode Transfer(FIM): 5 Shower Transfer(FIM): 5 Additional Goals: 1-Demonstrate ADL Tasks, 2-Verbalize Understanding, 3- ImproveStrength/Ani 1=Demonstrate adherence to instructed precautions during ADL tasks. 2=Patient will verbalize/demonstrate understanding of assistive devices/ modifications for ADL. 3=Patient will improve strength/tolerance for activity to enable patient to perform ADL's. OT Education/Plan Problem List/Assessment Pt would benefit from skilled oT to increase her independence in basic self care to allow her to safely return home Discharge Recommendations Plan/Recommendations: Continue POC Treatment Plan/Plan of Care Patient would benefit from OT for education, treatment and training to promote independence in ADL's, mobility, safety and/or upper extremity function for ADL' s. Plan of Care: ADL Retraining, Functional Mobility, UE Funct Exercise/Act, UE Neuromus Re-Ed/Coord, OTHER (energy conservation education) Treatment Duration: Feb 24, 2018 Frequency: 5 times per week Estimated Hrs Per Day: .5 hour per day Agreement: Yes Rehab Potential: Fair Time/GCodes Start Time: 13:10 Stop Time: 13:33 Total Time Billed (hr/min): 23 Billed Treatment Time 1 visit-ADL 2 (23 min) RANDY THOMAS Feb 20, 2018 13:36
[2018-02-20] MEDS: sulfaSALAzine 500 MG (AZULFIDINE) TAB PO SCH ×2 (15:09→21:15)
[2018-02-20 15:55] VITALS: BP 131/60
[2018-02-20] MEDS: metFORMIN 850 MG (GLUCOPHAGE) TAB PO SCH (17:05)
[2018-02-20 20:05] VITALS: BP 142/65
[2018-02-20] MEDS: ROSUVASTATIN 20 MG (CRESTOR) TABLET PO SCH (21:15)
[2018-02-20] MEDS: traZODone 150 MG (DESYREL) TABLET PO SCH (21:15)
[2018-02-20] MEDS: LORATADINE (CLARITIN) 10 MG TAB PO SCH (21:16)
[2018-02-20] MEDS: MONTELUKAST 10 MG (SINGULAIR) TAB PO SCH (21:16)
[2018-02-21 00:03] VITALS: BP 131/72
[2018-02-21 04:00] VITALS: BP 134/73
[2018-02-21] MEDS: inSUlin ASPART (NovoLOG) 1 UNIT/0.01 ML (CHARGE PER UNIT) SC SCH ×3 (05:47→16:25)
[2018-02-21] MEDS: VENlafaxine XR 75 MG (EFFEXOR XR) CAP PO SCH (06:18)
[2018-02-21] MEDS: PANTOPRAZOLE 20 MG TABLET (PROTONIX) PO SCH (06:18)
[2018-02-21] MEDS: metFORMIN 850 MG (GLUCOPHAGE) TAB PO SCH (06:18)
[2018-02-21] MEDS: MAGNESIUM OXIDE (MAG-OX)400 MG TAB PO SCH (06:18)
[2018-02-21] MEDS: RT-ALBUTEROL SULF 2.5 MG/3 ML PRE-MIX VIAL INH SCH ×3 (06:53→14:44)
[2018-02-21] MEDS ORDERED: VITAMIN D3 5,000 UNITS (CHOLECALCIFEROL ) CAPSULE PO SCH (07:00)
[2018-02-21 08:21] VITALS: BP 115/56
[2018-02-21] MEDS: busPIRone 10 MG (BUSPAR) TAB PO SCH (08:38)
[2018-02-21] MEDS: ENOXAPARIN 40 MG/0.4 ML (LOVENOX) SYR SC SCH (08:38)
[2018-02-21] MEDS: BACLOFEN 10 MG (LIORESAL) TAB PO SCH ×2 (08:38→14:12)
[2018-02-21] MEDS: sulfaSALAzine 500 MG (AZULFIDINE) TAB PO SCH (08:38)
[2018-02-21] MEDS: fluCOnazole (DIFLUCAN) 100 MG TAB PO SCH (08:38)
[2018-02-21] MEDS: ACETAMINOPHEN 325 MG TABLET PO PRN (08:59)
--- NOTE | 2018-02-21 10:57 | Occupational Ther Daily Note ---
OT Current Status-Daily Note Subjective Pt alert, sitting in recliner. No c/o pain. Pt stated she hoped that she goes home today. Agrees to therapy. Mental Status/Objective Patient Orientation: Person, Place, Time, Situation Functional [place] Measure 0=Not Assessed/NA 4=Minimal Assistance 1=Total Assistance 5=Supervision or Setup 2=Maximal Assistance 6=Modified [place] 3=Moderate Assistance 7=Complete [place] Attachments: IV, Oxygen ADL-Treatment Requested shower. After set up for bathing and dressing, pt able to complete by self. Using shower bench, grabbars and hand held shower pt able to complete. Sitting on toilet pt able to don/doff clothing by self. Pt took increased time to complete tasks. After therapy, pt sitting in recliner with call light/phone in reach. All needs met in room. Bathing (FIM): 5 Bathing Location: L Arm, R Arm, L Upper Leg, R Upper Leg, L Lower Leg ( including foot), R Lower Leg (including foot), Chest, Abdomen, Buttocks, Perineal Area Upper Body (FIM): 5 Lower Body Dressing (FIM): 5 Toileting (FIM): 6 Transfers (B, C, W/C) (FIM): 6 Toilet/Commode Transfer (FIM): 6 Shower Transfer(FIM): 6 OT Short Term Goals Short Term Goals 1=Demonstrate adherence to instructed precautions during ADL tasks. 2=Patient will verbalize/demonstrate understanding of assistive devices/ modifications for ADL. 3=Patient will improve strength/tolerance for activity to enable patient to perform ADL's. OT Senior Living Goals Senior Living Goals Time Frame: Feb 24, 2018 Eating (FIM): 6 Grooming(FIM): 5 Bathing(FIM): 5 Upper Body Dressing(FIM): 5 Lower Body Dressing(FIM): 5 Toileting(FIM): 5 Toilet/Commode Transfer(FIM): 5 Shower Transfer(FIM): 5 Additional Goals: 1-Demonstrate ADL Tasks, 2-Verbalize Understanding, 3- ImproveStrength/Ani 1=Demonstrate adherence to instructed precautions during ADL tasks. 2=Patient will verbalize/demonstrate understanding of assistive devices/ modifications for ADL. 3=Patient will improve strength/tolerance for activity to enable patient to perform ADL's. OT Education/Plan Problem List/Assessment Pt would benefit from skilled oT to increase her independence in basic self care to allow her to safely return home Discharge Recommendations Plan/Recommendations: Continue POC Treatment Plan/Plan of Care Patient would benefit from OT for education, treatment and training to promote independence in ADL's, mobility, safety and/or upper extremity function for ADL' s. Plan of Care: ADL Retraining, Functional Mobility, UE Funct Exercise/Act, UE Neuromus Re-Ed/Coord, OTHER (energy conservation education) Treatment Duration: Feb 24, 2018 Frequency: 5 times per week Estimated Hrs Per Day: .5 hour per day Agreement: Yes Rehab Potential: Fair Time/GCodes Start Time: 10:00 Stop Time: 10:47 Total Time Billed (hr/min): 47 Billed Treatment Time 1 visit-ADL 3 (47 min) RANDY THOMAS Feb 21, 2018 10:57
[2018-02-21 12:09] VITALS: BP 125/72
--- NOTE | 2018-02-21 13:58 | Progress Note-Hospitalist ---
Progress Note Progress Notes/Assess & Plan Date Seen 02/21/18 Time Seen by Provider: 13:53 Assessment & Plan The patient reports she continues to improve by the day. She was tested yesterday for necessity for home oxygen and did not qualify at 88 percent. She reports that she has sleep apnea and needs to have repeat testing as her equipment is virtually nonfunctional at this time. She is to be moving here as a full-time resident. She will be supervised by her daughter. She will need to find a new community physician. Physical exam: She is sitting in the chair at bedside. Breath sounds are distant but clear. CV is regular. Extremities show 1+ edema. She is afebrile and vital signs are stable. Impression: Flulike illness/SIRS. 2.sleep apnea. 3.rheumatoid arthritis. 4.diabetes mellitus type II [id number]. Plan: Discharge. SEE discharge sequence for medications and activities. ДМИТРИЙ PHILLIPS MD Feb 21, 2018 13:58
--- NOTE | 2018-02-21 14:01 | Discharge Instructions ---
Discharge Instructions Patient Instructions Patient Instructions: Medications as listed on the discharge sequence. Physical activity as tolerated. Arrange for a new community physician. I agreed that retesting for sleep apnea is a good plan. Return to [facility] For: Recurrence of symptoms/decline in performance Activity & Diet Discharge Diet: ADA Diet Activity as Tolerated: Yes ДМИТРИЙ PHILLIPS MD Feb 21, 2018 14:01
--- NOTE | 2018-02-21 14:03 | Physical Therapy Daily Note ---
PT Daily Note-Current Subjective Pt sitting in recliner, ordering lunch upon arrival. Pt agrees to PT for Seated Ex. Pain Location: No Pain Reported Mental Status Patient Orientation: Person, Place, Situation Attachments: Oxygen (2L) Transfers Functional [place] Measure 0=Not Assessed/NA 4=Minimal Assistance 1=Total Assistance 5=Supervision or Setup 2=Maximal Assistance 6=Modified [place] 3=Moderate Assistance 7=Complete IndependenceIRFPAI Quality Coding Scale 6 Independent with activity with or without an assistive device 5 Patient requires set up or clean up by helper. Patient completes activity by themselves 4 Supervision or touching assist (CGA). [place] provide cues , steadying assist 3 The helper provides less than half the effort to complete the activity 2 The helper provides more than half the effort to complete the activity 1 Dependent. The helper does all the effort to complete an activity 7 Patient refused to complete or attempt activity 9 The patient did not perform the activity before the current illness or injury 88 Not attempted due to Medical conditions or safety concerns Weight Bearing Right Lower Extremity: Right Weight Bearing/Tolerated Left Lower Extremity: Left Weight Bearing/Tolerated Exercises Seated Therapy Exercises: Ankle pumps, Long arc quads, Hip flexion, Kicking activity Seated Reps: 15 Treatments CONCRETE SPREADER gives instruction & pt completes Seated Ex. Pt resting in recliner as lunch arrives. Pt has all needs met. Assessment Current Status: Fair Progress Pt able to complete Ex but preoccupied with lunch coming. PT Short Term Goals Short Term Goals Time Frame: Feb 24, 2018 Gait (FIM): 2 Distance (FIM): 1=273-46 ft Gait Distance Comment: 50' Gait Level of Assist: 4 Gait Assistive Device: FWW PT Plan Problem List Problem List: Activity Tolerance, Functional Strength, Safety, Balance, Gait, Transfer Treatment/Plan Treatment Plan: Continue Plan of Care Treatment Plan: Bed Mobility, Concurrent Therapy, Education, Functional Activity Ani, Functional Strength, Gait, Safety, Therapeutic Exercise, Transfers Treatment Duration: Feb 24, 2018 Frequency: 6 times per week Estimated Hrs Per Day: .25 hour per day (15-30') Patient and/or Family Agrees t: Yes Safety Risks/Education Patient Education: Transfer Techniques, Correct Positioning, Safety Issues Teaching Recipient: Patient Teaching Methods: Discussion Response to Teaching: Verbalize Understanding Time/GCodes Time In: 1250 Time Out: 1300 Total Billed Treatment Time: 10 Total Billed Treatment 1, EX (10m) G Codes Necessary: NICOLE Warren CONCRETE SPREADER Feb 21, 2018 14:03
[2018-02-21] MEDS ORDERED: FLU QUADRIvalent (5+ YOA) 2018-2019 (AFLURIA) 0.5 ML IM ONE (15:06)
[2018-02-21 15:35] VITALS: BP 121/62
[2018-02-21 17:00] VITALS: BP 121/62
== END 2018-02-21 17:00 | disposition home or self-care (01) | DRG 153 ==
LOC: EDUNIT# 10:59 → ER 11:00 → 4TH 14:52
PROVIDERS: ADMIT Family Medicine; ATTEND Family Medicine
DX: J11.1 Influenza due to unidentified influenza virus with other respiratory manifestations (principal); J44.9 Chronic obstructive pulmonary disease, unspecified; G62.9 Polyneuropathy, unspecified; M06.9 Rheumatoid arthritis, unspecified; E11.9 Type 2 diabetes mellitus without complications; I10 Essential (primary) hypertension; E83.42 Hypomagnesemia; F32.9 Major depressive disorder, single episode, unspecified; K21.9 Gastro-esophageal reflux disease without esophagitis; G47.30 Sleep apnea, unspecified; Z79.84 Long term (current) use of oral hypoglycemic drugs; Z23 Encounter for immunization
CPT/HCPCS: 36415; 51702; 71045; 71275; 80048; 80053; 81000; 82962; 83605; 83735; 85007; 85025; 85027; 85610; 85730; 87040; 87070; 87088; 87205; 87804; 90686; 94640; 94664; 94760; 94761; 96361; 96365; 96367; 96375